=== PATIENT | male | born 1995 | race Caucasian/White ===

== ENCOUNTER 2017-01-13 22:41 | Emergency (ER) | payer OTHER ==
[2017-01-13 23:26] VITALS: RESP 18
[2017-01-14] MEDS ORDERED: ACETAMINOPHEN TAB 500 MG TAB PO STA (00:20)
[2017-01-14] MEDS ORDERED: IBUPROFEN 600 MG TAB PO STA (00:20)
[2017-01-14] MEDS ORDERED: IPRATROPIUM-ALBUTEROL 3 ML NEB INHALATION STA (00:20)
--- NOTE | 2017-01-14 00:44 | ED ---
Fever HPI - General Chief Complaint: Fever Stated Complaint: fever, Time Seen by Provider: 01/14/17 00:14 Source: patient, RN notes reviewed Mode of arrival: ambulatory Limitations: no limitations - History of Present Illness Initial Comments: 21-year-old male presents emergency Department chief complaint cough cold like symptoms. Patient states has been sick for the past few days. Patient states she has had source of breath this. Patient denies any nausea vomiting. Patient admits to ear pain as well as throat pain. Patient states that he was concerned due to the continued symptoms without that he should be evaluated. Patient denies any recent chest pain, back pain, abdominal pain, nausea vomiting , numbness or tingling, dysuria or hematuria, constipation or diarrhea, headaches or visual changes, or any other current symptoms. - Related Data Home Medications Medication Instructions Recorded Confirmed Dextroamphetamine/Amphetamine 20 mg PO DAILY 01/13/17 01/13/17 [Adderall] Previous Rx's Medication Instructions Recorded Albuterol Inhaler [Ventolin Hfa 1 - 2 puff INHALATION Q4-6H PRN #1 01/14/17 Inhaler] inhaler Albuterol Nebulized [Ventolin 2.5 mg INHALATION Q4H #20 nebu 01/14/17 Nebulized] Azithromycin [Zithromax] 250 mg PO DIRECTED #6 tab 01/14/17 Allergies Allergy/AdvReac Type Severity Reaction Status Date / Time No Known Allergies Allergy Verified 01/13/17 23:25 Review of Systems ROS Statement: Those systems with pertinent positive or pertinent negative responses have been documented in the HPI. ROS Other: All systems not noted in ROS Statement are negative. Past Medical History Past Medical History: Asthma History of Any Multi-Drug Resistant Organisms: None Reported Past Surgical History: Appendectomy, Ear Surgery, Tonsillectomy Additional Past Surgical History / Comment(s): nose, Past Psychological History: ADD/ADHD, Anxiety, Depression Smoking Status: Current every day smoker Past Alcohol Use History: Rare Past Drug Use History: None Reported General Exam - General Exam Comments Initial Comments: General exam: Alert, active, comfortable in no apparent distress Head: Normocephalic Eyes: Normal reaction of pupils, equal size, normal range of extraocular motion Ears: normal external ear canals, pink tympanic membranes with normal cone of light on the right, patient does appear to have some erythema noted to the left tympanic membrane Nose: clear with pink turbinates Throat: no erythema or exudates with normal sized tonsils Neck: no masses, no nuchal rigidity Chest: no chest wall deformity Lungs: equal air entry with no crackles or wheeze CVS: S1 and S2 normal with no audible mumurs, regular rhythm Abdomen: no hepatosplenomegaly, normal bowel sounds, no guarding or rigidity Spine: no scoliosis or deformity Skin: no rashes Neurological: No focal deficits, tone is normal in all 4 extremities Limitations: no limitations Course Vital Signs 01/13/17 23:21 Temperature 98.6 F Pulse Rate 104 H Respiratory 18 Rate Blood Pressure 125/73 O2 Sat by Pulse 98 Oximetry Medical Decision Making - Medical Decision Making 19-year-old male presents emergency Department what appears to be a left otitis media with upper respiratory infection. The family said the patient on breathing treatments for home as well as antibiotics. We discussed return The follow-up. We discussed all the patient worsens. He stated he understood and that given the plan. At this time they will be discharged home. - Lab Data Lab Results 01/14/17 Range/Units 00:38 Influenza Type A RNA Not Detected (Not Detectd) Influenza Type B (PCR) Not Detected (Not Detectd) - Radiology Data Radiology results: report reviewed, image reviewed Disposition Clinical Impression: Left otitis media, Upper respiratory infection Disposition: HOME SELF-CARE Condition: Stable Instructions: Upper Respiratory Infection (ED) Additional Instructions: Please use medication as discussed. Please follow up with family doctor if symptoms have not improved over the next two days. Please return to the emergency room if your symptoms increase or worsen or for any other concerns. Prescriptions: Albuterol Inhaler [Ventolin Hfa Inhaler] 1 - 2 puff INHALATION Q4-6H PRN #1 inhaler PRN Reason: Cough Albuterol Nebulized [Ventolin Nebulized] 2.5 mg INHALATION Q4H #20 nebu Azithromycin [Zithromax] 250 mg PO DIRECTED #6 tab Referrals: None,Stated [Primary Care Provider] - 1-2 days Deborah Hill MD [STAFF PHYSICIAN] - 1-2 days Time of Disposition: 01:15
--- NOTE | 2017-01-14 01:12 | XR ---
EXAM: XR Chest, 2 Views. CLINICAL HISTORY: Reason: cough TECHNIQUE: Frontal and lateral views of the chest. COMPARISON: None FINDINGS: Hardware: None. Lungs/pleura: No focal consolidation. No pleural effusion or pneumothorax. Heart/mediastinum: Normal. No cardiomegaly. Soft tissues: Unremarkable. Bones: No acute fracture. Upper abdomen: Normal. IMPRESSION: No acute disease.
[2017-01-14 02:08] VITALS: BP 127/67; PULSE 95; TEMP 98.1
== END 2017-01-14 02:08 | disposition home or self-care (01) ==
LOC: EC 22:41
DX: J06.9 Acute upper respiratory infection, unspecified (principal); H66.92 Otitis media, unspecified, left ear; J45.909 Unspecified asthma, uncomplicated; F90.9 Attention-deficit hyperactivity disorder, unspecified type; F32.9 Major depressive disorder, single episode, unspecified; F41.9 Anxiety disorder, unspecified; F17.200 Nicotine dependence, unspecified, uncomplicated; Z79.899 Other long term (current) drug therapy; Z90.89 Acquired absence of other organs
CPT/HCPCS: 71020; 87502; 94640; 99284

== ENCOUNTER 2017-06-03 00:46 | Emergency (ER) | payer OTHER ==
[2017-06-03] MEDS ORDERED: IPRATROPIUM-ALBUTEROL 3 ML NEB INHALATION STA (01:36)
--- NOTE | 2017-06-03 01:54 | XR ---
EXAM: XR Chest, 2 Views CLINICAL HISTORY: Reason: cough TECHNIQUE: Frontal and lateral views of the chest. COMPARISON: 01/14/17 FINDINGS: Lungs: Unremarkable. No consolidation. Pleural space: Unremarkable. No pneumothorax. Heart: Unremarkable. No cardiomegaly. Mediastinum: Unremarkable. Bones/joints: Unremarkable. IMPRESSION: Normal chest x-rays.
[2017-06-03] MEDS ORDERED: methylPREDNISolone SOD SUCCI 125 MG/2 ML VIAL IM STA (02:23)
--- NOTE | 2017-06-03 02:37 | ED ---
General Adult HPI - General Chief complaint: Upper Respiratory Infection Stated complaint: NEREIDA Time Seen by Provider: 06/03/17 01:28 Source: patient, RN notes reviewed Mode of arrival: ambulatory Limitations: no limitations - History of Present Illness Initial comments: Patient 22-year-old male seen in the past medical history for asthma, who presents emergency room today with a chief complaint of increased cough congestion over the last week. He does admit to positive sputum production. States it has been another person in the hospital similar symptoms of upper respiratory infection. Patient states he does have an inhaler but does not appear in she was at home. He does admit to some pain to the anterior chest wall worse with the coughing. He denies any other bites associated symptoms. Patient denies any recent fever, chills, back pain, abdominal pain, nausea or vomiting, numbness or tingling, dysuria or hematuria, constipation or diarrhea, headaches or visual changes, or any other complaints. - Related Data Home Medications Medication Instructions Recorded Confirmed Budesonide/Formoterol Fumarate 2 puff INHALATION BID 06/03/17 06/03/17 [Symbicort 160-4.5 Mcg Inhaler] buPROPion HCL [Wellbutrin XL] 300 mg PO DAILY 06/03/17 06/03/17 Previous Rx's Medication Instructions Recorded Albuterol Nebulized [Ventolin 2.5 mg INHALATION Q4H #20 nebu 01/14/17 Nebulized] Albuterol Nebulized [Ventolin 2.5 mg INHALATION Q4H PRN 10 Days 06/03/17 Nebulized] Azithromycin [Zithromax Z-pack] 0 mg PO DIRECTED #6 tab 06/03/17 predniSONE 60 mg PO DAILY 5 Days 06/03/17 Allergies Allergy/AdvReac Type Severity Reaction Status Date / Time No Known Allergies Allergy Verified 06/03/17 00:51 Review of Systems ROS Statement: Those systems with pertinent positive or pertinent negative responses have been documented in the HPI. ROS Other: All systems not noted in ROS Statement are negative. Past Medical History Past Medical History: Asthma History of Any Multi-Drug Resistant Organisms: None Reported Past Surgical History: Appendectomy, Ear Surgery, Tonsillectomy Additional Past Surgical History / Comment(s): nose, Past Psychological History: ADD/ADHD, Anxiety, Depression Smoking Status: Current every day smoker Past Alcohol Use History: Rare Past Drug Use History: None Reported General Exam - General Exam Comments Initial Comments: General: The patient is awake and alert, in no distress, and does not appear acutely ill. Eye: Pupils are equal, round and reactive to light, extra-ocular movements are intact. No nystagmus. There is normal conjunctiva bilaterally. No signs of icterus. Ears, nose, mouth and throat: There are moist mucous membranes and no oral lesions. Neck: The neck is supple, there is no tenderness or JVD. Cardiovascular: There is a regular rate and rhythm. No murmur, rub or gallop is appreciated. Respiratory: Lungs are clear to auscultation, respirations are non-labored, breath sounds are equal. No wheezes, stridor, rales, or rhonchi. Gastrointestinal: Soft, non-distended, non-tender abdomen without masses or organomegaly noted. There is no rebound or guarding present. No CVA tenderness. Bowel sounds are unremarkable. Musculoskeletal: Normal ROM, no tenderness. Strength 5/5. Sensation intact. Pulses equal bilaterally 2+. Neurological: A&O x 3. CN II-XII intact, There are no obvious motor or sensory deficits. Coordination appears grossly intact. Speech is normal. Skin: Skin is warm and dry and no rashes or lesions are noted. Psychiatric: Cooperative, appropriate mood & affect, normal judgment. Limitations: no limitations Course Vital Signs 06/03/17 06/03/17 06/03/17 00:48 01:52 02:02 Temperature 97.7 F Pulse Rate 87 72 83 Respiratory 18 Rate Blood Pressure 132/70 O2 Sat by Pulse 100 Oximetry Medical Decision Making - Medical Decision Making Patient given breathing treatment here in the emergency room does admit to some improvement. He does admit to cough congestion over the last week positive sputum production. Chest x-rays reviewed shows no pneumonia. Patient's symptoms consistent with a bronchitis given dose of steroids here in the emergency room will be started on azithromycin, steroids and given prescription for breathing treatments as he states he does have access to a nebulizer. He is advised his family doctor over the next 1-2 days or return here to emergency room if any symptoms increase or worsen. Patient states understanding and is in agreement. Disposition Clinical Impression: Acute bronchitis Disposition: HOME SELF-CARE Condition: Good Instructions: Acute Bronchitis (ED) Additional Instructions: Please use medication as discussed. Please follow-up with family doctor in the next 2 days. Please return to emergency room if the symptoms increase or worsen or for any other concerns. Prescriptions: Albuterol Nebulized [Ventolin Nebulized] 2.5 mg INHALATION Q4H PRN 10 Days PRN Reason: Cough Azithromycin [Zithromax Z-pack] 0 mg PO DIRECTED #6 tab predniSONE 60 mg PO DAILY 5 Days Referrals: Lam Lane MD [Primary Care Provider] - 1-2 days Time of Disposition: 02:36
[2017-06-03 02:49] VITALS: BP 139/70; PULSE 82; RESP 16; TEMP 97.8
== END 2017-06-03 02:49 | disposition home or self-care (01) ==
LOC: EC 00:46
DX: J45.901 Unspecified asthma with (acute) exacerbation (principal); F32.9 Major depressive disorder, single episode, unspecified; F90.9 Attention-deficit hyperactivity disorder, unspecified type; F41.9 Anxiety disorder, unspecified; F17.200 Nicotine dependence, unspecified, uncomplicated; Z79.51 Long term (current) use of inhaled steroids; Z79.899 Other long term (current) drug therapy
CPT/HCPCS: 94640; 93005; 71020; 99283; 96372; J2930

== ENCOUNTER 2018-01-06 11:35 | Emergency (ER) | payer OTHER ==
[2018-01-06 11:39] VITALS: BP 134/71; RESP 20; TEMP 98.1
[2018-01-06] MEDS ORDERED: IPRATROPIUM-ALBUTEROL 3 ML NEB INHALATION STA (12:03)
--- NOTE | 2018-01-06 12:19 | XR ---
EXAMINATION TYPE: XR chest 2V DATE OF EXAM: 01/06/2018 COMPARISON: June 03, 2017 HISTORY: Chest pain TECHNIQUE: Frontal and lateral views of the chest are obtained. FINDINGS: There is no focal air space opacity. No evidence for pneumothorax. No pleural effusion. The cardiac silhouette size is within normal limits. The osseous structures are grossly intact. IMPRESSION: 1. No acute cardiopulmonary process.
--- NOTE | 2018-01-06 12:33 | ED ---
SOB HPI - General Chief Complaint: Shortness of Breath Stated Complaint: cough, congestion Time Seen by Provider: 01/06/18 11:52 Source: patient, RN notes reviewed Mode of arrival: ambulatory Limitations: no limitations - History of Present Illness Initial Comments: 22-year-old male presents emergency Department chief complaint cough congestion. Patient states symptoms started approximately one week ago. Patient the daily smoker. He has not any any [id number] cough and cold medications denies any fever or chills or body aches. He has a slight rhinorrhea and sinus congestion. His cough is nonproductive. Patient states he has history of asthma but does not use any inhaler or nebulized treatments. Patient denies any recent hospitalizations. Denies any NO KNOWN DRUG ALLERGIES. - Related Data Home Medications Medication Instructions Recorded Confirmed Budesonide/Formoterol Fumarate 2 puff INHALATION BID 06/03/17 06/03/17 [Symbicort 160-4.5 Mcg Inhaler] buPROPion HCL [Wellbutrin XL] 300 mg PO DAILY 06/03/17 06/03/17 Previous Rx's Medication Instructions Recorded Albuterol Nebulized [Ventolin 2.5 mg INHALATION Q4H #20 nebu 01/14/17 Nebulized] Albuterol Nebulized [Ventolin 2.5 mg INHALATION Q4H PRN 10 Days 06/03/17 Nebulized] nebu Azithromycin [Zithromax Z-pack] 0 mg PO DIRECTED #6 tab 06/03/17 predniSONE 60 mg PO DAILY 5 Days tab 06/03/17 Albuterol Sulfate [Proair Hfa] 1 - 2 puff INHALATION Q4HR PRN #1 01/06/18 inhaler Azithromycin [Zithromax Z-pack] 0 mg PO DIRECTED #1 pack 01/06/18 predniSONE 50 mg PO DAILY #5 tab 01/06/18 Allergies Allergy/AdvReac Type Severity Reaction Status Date / Time No Known Allergies Allergy Verified 01/06/18 11:39 Review of Systems ROS Statement: Those systems with pertinent positive or pertinent negative responses have been documented in the HPI. ROS Other: All systems not noted in ROS Statement are negative. Past Medical History Past Medical History: Asthma History of Any Multi-Drug Resistant Organisms: None Reported Past Surgical History: Appendectomy, Ear Surgery, Tonsillectomy Additional Past Surgical History / Comment(s): nose, Past Psychological History: ADD/ADHD, Anxiety, Depression Smoking Status: Current every day smoker Past Alcohol Use History: Rare Past Drug Use History: None Reported General Exam Limitations: no limitations General appearance: alert, in no apparent distress Head exam: Present: atraumatic, normocephalic, normal inspection Eye exam: Present: normal appearance, PERRL, EOMI. Absent: scleral icterus, conjunctival injection, periorbital swelling ENT exam: Present: normal exam, normal oropharynx, mucous membranes moist, TM's normal bilaterally, normal external ear exam Neck exam: Present: normal inspection, full ROM. Absent: tenderness, meningismus, lymphadenopathy Respiratory exam: Present: wheezes (Minimal). Absent: normal lung sounds bilaterally, respiratory distress, rales, rhonchi, stridor Cardiovascular Exam: Present: regular rate, normal rhythm, normal heart sounds. Absent: systolic murmur, diastolic murmur, rubs, gallop, clicks Skin exam: Present: warm, dry, intact, normal color. Absent: rash Course Vital Signs 01/06/18 01/06/18 01/06/18 11:37 12:36 12:45 Temperature 98.1 F Pulse Rate 98 84 88 Respiratory 20 Rate Blood Pressure 134/71 O2 Sat by Pulse 100 Oximetry Medical Decision Making - Medical Decision Making 22-year-old male present with Department chief complaint of cough congestion. Patient has acute bronchitis. Patient's x-ray reviewed no acute abnormality patient is improved after breathing treatment. He is advised to stop smoking smoking cessation was counseled in detail greater than 3 minutes. Disposition Clinical Impression: Acute bronchitis Disposition: HOME SELF-CARE Condition: Stable Instructions: Acute Bronchitis (ED) Additional Instructions: Please return to the Emergency Department if symptoms worsen or any other concerns. Prescriptions: Albuterol Sulfate [Proair Hfa] 1 - 2 puff INHALATION Q4HR PRN #1 inhaler PRN Reason: difficulty in breathing Azithromycin [Zithromax Z-pack] 0 mg PO DIRECTED #1 pack predniSONE 50 mg PO DAILY #5 tab Referrals: Lam Lane MD [Primary Care Provider] - 1-2 days Time of Disposition: 13:06
[2018-01-06 12:47] VITALS: PULSE 88
== END 2018-01-06 13:10 | disposition home or self-care (01) ==
LOC: EC 11:35
DX: J20.9 Acute bronchitis, unspecified (principal); J45.909 Unspecified asthma, uncomplicated; F32.9 Major depressive disorder, single episode, unspecified; F17.200 Nicotine dependence, unspecified, uncomplicated; Z79.51 Long term (current) use of inhaled steroids; Z79.899 Other long term (current) drug therapy
CPT/HCPCS: 71046; 94640; 99285

== ENCOUNTER 2018-07-17 22:19 | Emergency (ER) | payer OTHER ==
--- NOTE | 2018-07-18 00:18 | XR ---
EXAMINATION TYPE: XR chest 2V DATE OF EXAM: 07/18/2018 COMPARISON: 01/06/2018 HISTORY: Cough TECHNIQUE: Frontal and lateral views of the chest are obtained. FINDINGS: Heart and mediastinum are normal. Lungs are clear. Diaphragm is normal. Bony thorax is int act. IMPRESSION: Normal chest. No change.
--- NOTE | 2018-07-18 01:31 | ED ---
General Adult HPI - General Chief complaint: Upper Respiratory Infection Stated complaint: Cold Time Seen by Provider: 07/17/18 23:08 Source: patient, RN notes reviewed Mode of arrival: ambulatory Limitations: no limitations - History of Present Illness Initial comments: 23-year-old male presents to the emergency department for cold symptoms times one month. Patient complains of a cough but denies any productivity. Patient also complains of a sore throat as well as congestion and ear pain. Patient denies headache. Patient denies shortness of breath. Patient does have a history of asthma and is a smoker. He denies COPD. He denies any other pertinent medical history. Denies any fevers or chills at home. He denies any chest pain but does state sometimes there is tightness when he coughs.Patient has no other complaints at this time including chest pain, abdominal pain, nausea or vomiting, headache, or visual changes. - Related Data Home Medications Medication Instructions Recorded Confirmed Budesonide/Formoterol Fumarate 2 puff INHALATION BID 06/03/17 06/03/17 [Symbicort 160-4.5 Mcg Inhaler] buPROPion HCL [Wellbutrin XL] 300 mg PO DAILY 06/03/17 06/03/17 Previous Rx's Medication Instructions Recorded Albuterol Nebulized [Ventolin 2.5 mg INHALATION Q4H #20 nebu 01/14/17 Nebulized] Albuterol Nebulized [Ventolin 2.5 mg INHALATION Q4H PRN 10 Days 06/03/17 Nebulized] nebu Azithromycin [Zithromax Z-pack] 0 mg PO DIRECTED #6 tab 06/03/17 predniSONE 60 mg PO DAILY 5 Days tab 06/03/17 Albuterol Sulfate [Proair Hfa] 1 - 2 puff INHALATION Q4HR PRN #1 01/06/18 inhaler Azithromycin [Zithromax Z-pack] 0 mg PO DIRECTED #1 pack 01/06/18 predniSONE 50 mg PO DAILY #5 tab 01/06/18 Albuterol Inhaler [Ventolin Hfa 1 - 2 puff INHALATION Q6HR PRN #1 07/18/18 Inhaler] inhaler Azithromycin [Zithromax Z-pack] 250 mg PO DIRECTED #6 tab 07/18/18 predniSONE 50 mg PO DAILY #5 tablet 07/18/18 Allergies Allergy/AdvReac Type Severity Reaction Status Date / Time No Known Allergies Allergy Verified 07/17/18 23:02 Review of Systems ROS Statement: Those systems with pertinent positive or pertinent negative responses have been documented in the HPI. ROS Other: All systems not noted in ROS Statement are negative. Past Medical History Past Medical History: Asthma History of Any Multi-Drug Resistant Organisms: None Reported Past Surgical History: Appendectomy, Ear Surgery, Tonsillectomy Additional Past Surgical History / Comment(s): nose, Past Psychological History: ADD/ADHD, Anxiety, Depression Smoking Status: Current every day smoker Past Alcohol Use History: None Reported Past Drug Use History: None Reported General Exam Limitations: no limitations General appearance: alert, in no apparent distress Head exam: Present: atraumatic, normocephalic, normal inspection Eye exam: Present: normal appearance, PERRL, EOMI. Absent: scleral icterus, conjunctival injection, periorbital swelling ENT exam: Present: normal exam, normal oropharynx (Nonerythematous, uvula midline, patient has had a tonsillectomy), mucous membranes moist, TM's normal bilaterally, normal external ear exam Neck exam: Present: normal inspection, full ROM. Absent: tenderness, meningismus, lymphadenopathy Respiratory exam: Present: normal lung sounds bilaterally. Absent: respiratory distress, wheezes, rales, rhonchi, stridor Cardiovascular Exam: Present: regular rate, normal rhythm, normal heart sounds. Absent: systolic murmur, diastolic murmur, rubs, gallop, clicks GI/Abdominal exam: Present: soft, normal bowel sounds. Absent: distended, tenderness, guarding, rebound, rigid Neurological exam: Present: alert, oriented X3, CN II-XII intact Psychiatric exam: Present: normal affect, normal mood Course Vital Signs 07/17/18 23:00 Temperature 98.1 F Pulse Rate 77 Respiratory 20 Rate Blood Pressure 107/67 O2 Sat by Pulse 97 Oximetry Medical Decision Making - Medical Decision Making 23-year-old male presents for cold symptoms times one month. Patient has had a nonproductive cough along with a sore throat, ear pain, and congestion. He denies fevers or chills at home. He states this generally happens to him about 3 times a year. Patient is a smoker with a history of asthma. Vitals are within normal limits. Temperature 98.1. Pulse rate 77. O2 saturation 97% on room air. Exam does not show any evidence of wheezing and lungs are clear to auscultation bilaterally. Chest x-ray negative for pneumonia. Strep negative. Culture will be sent. At this time patient likely has a viral upper respiratory or bronchitis. He will be treated with prednisone due to his history of asthma. He will be given azithromycin as this has been ongoing for 1 month and he is a smoker. He will also be given an inhaler. He is to follow- up with primary care in 1-2 days. I did discuss returning immediately if he has any worsening symptoms. - Lab Data Lab Results 07/17/18 Range/Units 23:45 Group A Strep Rapid Negative (Negative) Disposition Clinical Impression: Cough Disposition: HOME SELF-CARE Condition: Good Instructions: Upper Respiratory Infection (ED) Additional Instructions: Please take prescriptions as directed. Please follow-up with primary care in 1- 2 days. Return immediately to the emergency department if you have any worsening symptoms. Prescriptions: Albuterol Inhaler [Ventolin Hfa Inhaler] 1 - 2 puff INHALATION Q6HR PRN #1 inhaler PRN Reason: Shortness Of Breath Azithromycin [Zithromax Z-pack] 250 mg PO DIRECTED #6 tab predniSONE 50 mg PO DAILY #5 tablet Is patient prescribed a controlled substance at d/c from ED?: No Referrals: Manny Garcia MD [STAFF PHYSICIAN] - 1-2 days Time of Disposition: 01:28
[2018-07-18 01:40] VITALS: BP 133/68; PULSE 73; RESP 16; TEMP 98.4
== END 2018-07-18 01:40 | disposition home or self-care (01) ==
LOC: EC 22:19
DX: R05 Cough (principal); R09.81 Nasal congestion; H92.09 Otalgia, unspecified ear; J02.9 Acute pharyngitis, unspecified; J45.909 Unspecified asthma, uncomplicated; F32.9 Major depressive disorder, single episode, unspecified; F17.200 Nicotine dependence, unspecified, uncomplicated; Z79.51 Long term (current) use of inhaled steroids; Z79.899 Other long term (current) drug therapy
CPT/HCPCS: 71046; 87081; 87430; 99283

== ENCOUNTER 2019-05-29 | Emergency (ER) | payer OTHER ==
--- NOTE | 2019-05-29 18:48 | ED ---
Skin/Abscess/FB HPI - General Chief complaint: Skin/Abscess/Foreign Body Stated complaint: POSS SCABIES Time Seen by Provider: 05/29/19 18:29 Source: patient Mode of arrival: ambulatory Limitations: no limitations - History of Present Illness Initial comments: 24-year-old male presents with a past nuchal history presented for possible exposure to scabies. Patient states he has lesions in his groins on his arms and legs. He states that his [id number]-law had visited and shortly after his entire family had lesions on the bodies. He states at first they thought they are mosquito bites. They found out that the man was seen and treated for scabies. Patient is concerned there exposed father and his 2 children been presents emergency department for evaluation. Patient states her itching. Denies any pattern at night. Denies any lesions between the fingers on the feet. Patient states he does have ingrown hairs commonly in the groin. Patient denies any fevers. Patient is back today. Denies recent travel. Remaining review of system negative. Upon arrival patient appears well afebrile no signs of acute distress. - Related Data Home Medications Medication Instructions Recorded Confirmed Budesonide/Formoterol Fumarate 2 puff INHALATION BID 06/03/17 06/03/17 [Symbicort 160-4.5 Mcg Inhaler] buPROPion HCL [Wellbutrin XL] 300 mg PO DAILY 06/03/17 06/03/17 Previous Rx's Medication Instructions Recorded Albuterol Nebulized [Ventolin 2.5 mg INHALATION Q4H #20 nebu 01/14/17 Nebulized] Albuterol Nebulized [Ventolin 2.5 mg INHALATION Q4H PRN 10 Days 06/03/17 Nebulized] nebu Azithromycin [Zithromax Z-pack] 0 mg PO DIRECTED #6 tab 06/03/17 predniSONE 60 mg PO DAILY 5 Days tab 06/03/17 Albuterol Sulfate [Proair Hfa] 1 - 2 puff INHALATION Q4HR PRN #1 01/06/18 inhaler Azithromycin [Zithromax Z-pack] 0 mg PO DIRECTED #1 pack 01/06/18 predniSONE 50 mg PO DAILY #5 tab 01/06/18 Albuterol Inhaler [Ventolin Hfa 1 - 2 puff INHALATION Q6HR PRN #1 07/18/18 Inhaler] inhaler Azithromycin [Zithromax Z-pack] 250 mg PO DIRECTED #6 tab 07/18/18 predniSONE 50 mg PO DAILY #5 tablet 07/18/18 Permethrin 5% Cream [Elimite] 1 applic TOPICAL ONCE 1 Days #1 05/29/19 tube Allergies Allergy/AdvReac Type Severity Reaction Status Date / Time No Known Allergies Allergy Verified 05/29/19 18:27 Review of Systems ROS Statement: Those systems with pertinent positive or pertinent negative responses have been documented in the HPI. ROS Other: All systems not noted in ROS Statement are negative. Past Medical History Past Medical History: Asthma History of Any Multi-Drug Resistant Organisms: None Reported Past Surgical History: Adenoidectomy, Appendectomy, Ear Surgery, Tonsillectomy Additional Past Surgical History / Comment(s): nose, Past Psychological History: ADD/ADHD, Anxiety, Depression Smoking Status: Current every day smoker Past Alcohol Use History: None Reported Past Drug Use History: None Reported General Exam - General Exam Comments Initial Comments: General: The patient is awake and alert, in no distress, and does not appear a cutely ill. Eye: +3 m pupils are equal, round and reactive to light, extra-ocular movements are intact. No nystagmus. There is normal conjunctiva bilaterally. No signs of icterus. Ears, nose, mouth and throat: There are moist mucous membranes and no oral lesions. Neck: The neck is supple, there is no tenderness or JVD. Cardiovascular: There is a regular rate and rhythm. No murmur, rub or gallop is appreciated. Respiratory: Lungs are clear to auscultation, respirations are non-labored, breath sounds are equal. No wheezes, stridor, rales, or rhonchi. Musculoskeletal: Normal ROM, no tenderness. Strength 5/5. Sensation intact. Ra dial pulses equal bilaterally 2+. Neurological: A&O x 3. CN II-XII intact, There are no obvious motor or sensory deficits. Coordination appears grossly intact. Speech is normal. Skin: Skin is warm and dry and no rashes. Raised red papules, no pustules, with mild excoriation, no diffuse erythema. No pattern few scattered lesions on UE/ LE and trunk. Patient exposed groin which revealed, few scattered non erythematous furuncles. No drainge. Psychiatric: Cooperative, appropriate mood & affect, normal judgment. Limitations: no limitations Course Vital Signs 05/29/19 18:27 Temperature 98.4 F Pulse Rate 79 Respiratory 18 Rate Blood Pressure 115/72 O2 Sat by Pulse 98 Oximetry Medical Decision Making - Medical Decision Making 24-year-old male presenting for possible scabies exposure. No overt signs of scabies. Patient showed me for uncles that were in the groin. They do not appear infected. No abscess. No surrounding cellulitis or secondary infection. This scattered lesions appear to be insect bites could possibly bedbugs. Scabies is on the differential however I feel this is less likely. Patient was prescribed permethrin however I do not advise patient to use it unless symptoms are worsening, including lesions between the fingers on the feet and itching increase at night. I recommended primary care follow up in 2 days. Patient is agreeable this care plan was discharged appearing well Disposition Clinical Impression: Rash Disposition: HOME SELF-CARE Condition: Good Instructions (If sedation given, give patient instructions): Scabies (ED) Additional Instructions: Please use medication as discussed. Please follow-up with family doctor in the next 2 days.. Please return to emergency room if the symptoms increase or worsen or for any other concerns. Prescriptions: Permethrin 5% Cream [Elimite] 1 applic TOPICAL ONCE 1 Days #1 tube Is patient prescribed a controlled substance at d/c from ED?: No Referrals: Raymundo Veloz MD [Primary Care Provider] - 1-2 days Time of Disposition: 18:48
== END 2019-05-29 18:57 | disposition home or self-care (01) ==
CPT/HCPCS: 99282

== ENCOUNTER 2019-11-21 20:00 | Observation (INO) | payer OTHER ==
[2019-11-21] MEDS ORDERED: SODIUM CHLORIDE 0.9% 1,000 ML IV STA (20:21)
[2019-11-21] MEDS ORDERED: MORPHINE SULFATE 4 MG/ML SYRINGE IV STA (20:21)
[2019-11-21] MEDS ORDERED: ONDANSETRON 4 MG/2 ML VIAL IVP STA (20:21)
[2019-11-21 21:09] LABS: Basophils # (A) 0.1 k/uL (0-0.2); Basophils % (A) 0 %; Eosinophils # (A) 0.1 k/uL (0-0.7); Eosinophils % (A) 0 %; HCT 46.7 % (39.0-53.0); HGB 16.3 gm/dL (13.0-17.5); Lymphocytes # (A) 1.6 k/uL (1.0-4.8); Lymphocytes % (A) 8 %; MCHC 34.9 g/dL (31.0-37.0); MCV 86.1 fL (80.0-100.0); Mean Platelet Volume 7.5; Monocytes # (A) 0.8 k/uL (0-1.0); Monocytes % (A) 4 %; Neutrophils # (A) 17.8 k/uL (1.3-7.7); Neutrophils % (A) 87 %; Platelet Count 272 k/uL (150-450); RBC 5.42 m/uL (4.30-5.90); RDW 12.1 % (11.5-15.5); WBC 20.6 k/uL (3.8-10.6)
[2019-11-21 21:12] LABS: Appearance,Urine Clear (Clear); Bilirubin,Urine Negative (Negative); Blood,Urine Negative (Negative); Color,Urine Yellow; Glucose,Urine (UA) Negative (Negative); Ketones,Urine 3+ (Negative); Leukocyte Esterase,Urine Negative (Negative); Mucus,Urine Many /hpf; Nitrite,Urine Negative (Negative); Protein,Urine 1+ (Negative); RBC,Urine 1 /hpf (0-5); Specific Gravity,Urine 1.033 (1.001-1.035); Squamous Epithelial Cell,Urine <1 /hpf (0-4); WBC,Urine 1 /hpf (0-5)
[2019-11-21 21:20] LABS: ALT 22 U/L (4-49); AST 27 U/L (17-59); African American GFR (CKD) >90 (>60 ml/min/1.73 sqM); Albumin 4.8 g/dL (3.5-5.0); Alkaline Phosphatase 72 U/L (38-126); Amylase 38 U/L (30-110); Anion Gap 9 mmol/L; Blood Urea Nitrogen 11 mg/dL (9-20); Calcium 9.6 mg/dL (8.4-10.2); Carbon Dioxide 27 mmol/L (22-30); Chloride 102 mmol/L (98-107); Glucose 89 mg/dL (74-99); Non-African American GFR(CKD) >90 (>60 ml/min/1.73 sqM); Potassium 4.3 mmol/L (3.5-5.1); Sodium 138 mmol/L (137-145); Total Bilirubin 0.7 mg/dL (0.2-1.3); Total Protein 7.7 g/dL (6.3-8.2)
--- NOTE | 2019-11-21 21:42 | CT ---
EXAMINATION TYPE: CT abdomen pelvis w con DATE OF EXAM: 11/21/2019 COMPARISON: None HISTORY: Pelvic and right lower quadrant pain. CT DLP: 1854.7 mGycm Automated exposure control for dose reduction was used. CONTRAST: Performed with IV Contrast, patient injected with 100 mL of Isovue 300. Multiple axial sections were obtained from the diaphragm to the floor the pelvis with intravenous con trast. Lung bases are clear. There is no pleural effusion. Heart size is normal. Liver spleen pancreas gallbladder stomach appear normal. Bile ducts are not dilated. There is no adrenal mass. Kidneys show satisfactory contrast opacification. There is no hydronephrosi s. Ureters are not dilated. Bladder distends smoothly. There is no inguinal hernia. There is no free fluid in the pelvis. There is some prominence of the appendix that measures up to 9 mm. There is very minimal surrounding fat stranding. There is no mesenteric edema. There is no ascites or free air. There is no sign of a bowel obstructio n. Lumbar vertebra have normal spacing and alignment. Posterior elements are intact. Bony pelvis is i ntact. IMPRESSION: Prominent appendix. This is equivocal for appendicitis. There is suggestion of very minimal fat stran ding and appendicitis should be considered in this patient with right lower quadrant pain.
[2019-11-21] MEDS ORDERED: PIPERACILLIN-TAZOBACTAM 3.375 GM in SODIUM CHLORIDE 0.9% 100 ML IVPB STA (21:43)
[2019-11-21] MEDS ORDERED: PIPERACILLIN-TAZOBACTAM 3.375 GM in SODIUM CHLORIDE 0.9% 100 ML IVPB ONE (22:01)
[2019-11-21] MEDS ORDERED: NALOXONE 0.4 MG/ML 1 ML VIAL IV PRN (22:22)
--- NOTE | 2019-11-21 22:24 | ED ---
General Adult HPI - General Chief complaint: Abdominal Pain Stated complaint: Side pain Time Seen by Provider: 11/21/19 20:08 Source: patient, RN notes reviewed, old records reviewed Mode of arrival: ambulatory Limitations: no limitations - History of Present Illness Initial comments: 24-year-old male patient no pertinent past history presents ED chief complaint right lower quadrant pain. Patient reports that today he had generalized abdominal discomfort. Today migraine his right lower quadrant. Does report of some nausea vomiting. Denies any other complaints. - Related Data Home Medications Medication Instructions Recorded Confirmed Budesonide/Formoterol Fumarate 2 puff INHALATION BID 06/03/17 06/03/17 [Symbicort 160-4.5 Mcg Inhaler] buPROPion HCL [Wellbutrin XL] 300 mg PO DAILY 06/03/17 06/03/17 Previous Rx's Medication Instructions Recorded Albuterol Nebulized [Ventolin 2.5 mg INHALATION Q4H #20 nebu 01/14/17 Nebulized] Albuterol Nebulized [Ventolin 2.5 mg INHALATION Q4H PRN 10 Days 06/03/17 Nebulized] nebu Azithromycin [Zithromax Z-pack] 0 mg PO DIRECTED #6 tab 06/03/17 predniSONE [Deltasone] 60 mg PO DAILY 5 Days tab 06/03/17 Albuterol Sulfate [Proair Hfa] 1 - 2 puff INHALATION Q4HR PRN #1 01/06/18 inhaler Azithromycin [Zithromax Z-pack] 0 mg PO DIRECTED #1 pack 01/06/18 predniSONE 50 mg PO DAILY #5 tab 01/06/18 Albuterol Inhaler [Ventolin Hfa 1 - 2 puff INHALATION Q6HR PRN #1 07/18/18 Inhaler] inhaler Azithromycin [Zithromax Z-pack] 250 mg PO DIRECTED #6 tab 07/18/18 predniSONE 50 mg PO DAILY #5 tablet 07/18/18 Permethrin 5% Cream [Elimite] 1 applic TOPICAL ONCE 1 Days #1 05/29/19 tube Allergies Allergy/AdvReac Type Severity Reaction Status Date / Time No Known Allergies Allergy Verified 11/21/19 20:07 Review of Systems ROS Statement: Those systems with pertinent positive or pertinent negative responses have been documented in the HPI. ROS Other: All systems not noted in ROS Statement are negative. Past Medical History Past Medical History: Asthma, GERD/Reflux History of Any Multi-Drug Resistant Organisms: None Reported Past Surgical History: Adenoidectomy, Ear Surgery, Tonsillectomy Additional Past Surgical History / Comment(s): nose, Past Psychological History: ADD/ADHD, Anxiety, Depression Smoking Status: Current every day smoker Past Alcohol Use History: Occasional Past Drug Use History: None Reported General Exam - General Exam Comments Initial Comments: Constitutional: NAD, AOX3, Pt has pleasant affect. HEENT: NC/AT, trachea midline, neck supple, no lymphadenopathy. Posterior pharynx non erythematous, without exudates. External ears appear normal, without discharge. Mucous membranes moist. Eyes PERRLA, EOM intact. There is no scleral icterus. No pallor noted. Cardiopulmonary: RRR, no murmurs, rubs or gallops, no JVD noted. Lungs CTAB in anterior and posterior plaza. No peripheral edema. Abdominal exam: Abdomen soft and non-distended. Abdomen tender to palpation at McBurney's point right lower quadrant region. No other areas of abdominal tenderness. Bowel sounds active in LLQ. No hepatosplenomegaly. No ecchymosis Neuro: CN II-XII grossly intact. No nuchal rigidity. No raccon eyes, no ramsey sign, no hemotympanum. No cervical spinal tenderness. MSK: Full active ROM in upper and lower extremities, 5/5 stregnth. Limitations: no limitations Course Vital Signs 11/21/19 20:05 Temperature 97.5 F L Pulse Rate 58 L Respiratory 20 Rate Blood Pressure 117/71 O2 Sat by Pulse 100 Oximetry Medical Decision Making - Medical Decision Making 24-year-old male patient presents to ED for abdominal pain. Patient vital signs are stable, afebrile. Physical exam is fairly right lower quadrant tenderness. Laboratory investigations revealed leukocytosis of 20. CT abdomen and pelvis equivoical for appendicitis. Patient does have point tenderness and clinical suspicion is very high. Patient initiated on IV antibiotics and admitted to Dr. Benson. case discussed and pt seen by Dr. Santacruz. - Lab Data Result diagrams: 11/21/19 20:52 11/21/19 20:52 Lab Results 11/21/19 11/21/19 11/21/19 Range/Units 20:52 20:52 20:52 WBC 20.6 H (3.8-10.6) k/uL RBC 5.42 (4.30-5.90) m/uL Hgb 16.3 (13.0-17.5) gm/dL Hct 46.7 (39.0-53.0) % MCV 86.1 (80.0-100.0) fL MCH 30.0 (25.0-35.0) pg MCHC 34.9 (31.0-37.0) g/dL RDW 12.1 (11.5-15.5) % Plt Count 272 (150-450) k/uL Neutrophils % 87 % Lymphocytes % 8 % Monocytes % 4 % Eosinophils % 0 % Basophils % 0 % Neutrophils # 17.8 H (1.3-7.7) k/uL Lymphocytes # 1.6 (1.0-4.8) k/uL Monocytes # 0.8 (0-1.0) k/uL Eosinophils # 0.1 (0-0.7) k/uL Basophils # 0.1 (0-0.2) k/uL Sodium 138 (137-145) mmol/L Potassium 4.3 (3.5-5.1) mmol/L Chloride 102 (98-107) mmol/L Carbon Dioxide 27 (22-30) mmol/L Anion Gap 9 mmol/L BUN 11 (9-20) mg/dL Creatinine 0.76 (0.66-1.25) mg/dL Est GFR (CKD-EPI)AfAm >90 (>60 ml/min/1.73 sqM) Est GFR (CKD-EPI)NonAf >90 (>60 ml/min/1.73 sqM) Glucose 89 (74-99) mg/dL Plasma Lactic Acid Filipe 1.1 (0.7-2.0) mmol/L Calcium 9.6 (8.4-10.2) mg/dL Total Bilirubin 0.7 (0.2-1.3) mg/dL AST 27 (17-59) U/L ALT 22 (4-49) U/L Alkaline Phosphatase 72 (38-126) U/L Total Protein 7.7 (6.3-8.2) g/dL Albumin 4.8 (3.5-5.0) g/dL Amylase 38 (30-110) U/L Lipase 18 L (23-300) U/L Urine Color Urine Appearance (Clear) Urine pH (5.0-8.0) Ur Specific [place] (1.001-1.035) Urine Protein (Negative) Urine Glucose (UA) (Negative) Urine Ketones (Negative) Urine Blood (Negative) Urine Nitrite (Negative) Urine Bilirubin (Negative) Urine Urobilinogen (<2.0) mg/dL Ur Leukocyte Esterase (Negative) Urine RBC (0-5) /hpf Urine WBC (0-5) /hpf Ur Squamous Epith Cells (0-4) /hpf Urine Mucus (None) /hpf 11/21/19 Range/Units 20:52 WBC (3.8-10.6) k/uL RBC (4.30-5.90) m/uL Hgb (13.0-17.5) gm/dL Hct (39.0-53.0) % MCV (80.0-100.0) fL MCH (25.0-35.0) pg MCHC (31.0-37.0) g/dL RDW (11.5-15.5) % Plt Count (150-450) k/uL Neutrophils % % Lymphocytes % % Monocytes % % Eosinophils % % Basophils % % Neutrophils # (1.3-7.7) k/uL Lymphocytes # (1.0-4.8) k/uL Monocytes # (0-1.0) k/uL Eosinophils # (0-0.7) k/uL Basophils # (0-0.2) k/uL Sodium (137-145) mmol/L Potassium (3.5-5.1) mmol/L Chloride (98-107) mmol/L Carbon Dioxide (22-30) mmol/L Anion Gap mmol/L BUN (9-20) mg/dL Creatinine (0.66-1.25) mg/dL Est GFR (CKD-EPI)AfAm (>60 ml/min/1.73 sqM) Est GFR (CKD-EPI)NonAf (>60 ml/min/1.73 sqM) Glucose (74-99) mg/dL Plasma Lactic Acid Filipe (0.7-2.0) mmol/L Calcium (8.4-10.2) mg/dL Total Bilirubin (0.2-1.3) mg/dL AST (17-59) U/L ALT (4-49) U/L Alkaline Phosphatase (38-126) U/L Total Protein (6.3-8.2) g/dL Albumin (3.5-5.0) g/dL Amylase (30-110) U/L Lipase (23-300) U/L Urine Color Yellow Urine Appearance Clear (Clear) Urine pH 6.0 (5.0-8.0) Ur Specific [place] 1.033 (1.001-1.035) Urine Protein 1+ H (Negative) Urine Glucose (UA) Negative (Negative) Urine Ketones 3+ H (Negative) Urine Blood Negative (Negative) Urine Nitrite Negative (Negative) Urine Bilirubin Negative (Negative) Urine Urobilinogen 2.0 (<2.0) mg/dL Ur Leukocyte Esterase Negative (Negative) Urine RBC 1 (0-5) /hpf Urine WBC 1 (0-5) /hpf Ur Squamous Epith Cells <1 (0-4) /hpf Urine Mucus Many H (None) /hpf Disposition Clinical Impression: Appendicitis Disposition: ADMITTED IP TO THIS [facility] Condition: Serious Is patient prescribed a controlled substance at d/c from ED?: No Referrals: Raymundo Veloz MD [Primary Care Provider] - 1-2 days
[2019-11-21] MEDS: HYDROmorphone 1 MG/ML 1 ML SYRINGE IVP STA (22:40)
[2019-11-21] MEDS: SODIUM CHLORIDE 0.9% 1,000 ML IV SCH (23:32)
[2019-11-22] MEDS: MORPHINE SULFATE 4 MG/ML SYRINGE IV PRN ×2 (01:17→09:13)
--- NOTE | 2019-11-22 09:18 | P.GSHP ---
History of Present Illness H&P Date: 11/22/19 CHIEF COMPLAINT: Abdominal pain HISTORY OF PRESENT ILLNESS: 24-year-old male who presents to emergency room chief complaint of abdominal pain. Patient reports his pain is localized to the right lower quadrant. His pain started on Friday and continued to worsen in severity throughout the weekend. Patient reports nausea and vomiting at home. Denies diarrhea or constipation. Denies fever or chills. PAST MEDICAL HISTORY: See list. PAST SURGICAL HISTORY: See list. SOCIAL HISTORY: No illicit drug use. REVIEW OF SYSTEMS: CONSTITUTIONAL: Denies fever or chills. HEENT: Denies blurred vision, vision changes, or eye pain. Denies hemoptysis CARDIOVASCULAR: Denies chest pain or pressure. RESPIRATORY: No shortness of breath. GASTROINTESTINAL: Refer to [facility] for pertinent findings HEMATOLOGIC: Denies bleeding disorders. GENITOURINARY: Denies any blood in urine. SKIN: Denies pruitis. Denies rash. PHYSICAL EXAM: VITAL SIGNS: Reviewed. GENERAL: Well-developed in no acute distress. HEENT: No sclera icterus. Extraocular movements grossly intact. Moist buccal mucosa. Head is atraumatic, normocephalic. ABDOMEN: Soft. Nondistended. Tenderness on palpation of right lower quadrant NEUROLOGIC: Alert and oriented. Cranial nerves II through XII grossly intact. LABORATORY DATA: WBC 20.6. Hemoglobin 16.3. Platelet count 272. Lactic acid 1.1 IMAGING: CT abdomen and pelvis: Prominence of the appendix that measures up to 9 mm. Minimal surrounding fat stranding. ASSESSMENT: 1. Abdominal pain 2. Acute appendicitis PLAN: NPO. Continue IV fluids Continue IV antibiotics. Monitor WBC Patient to undergo laparoscopic appendectomy today with Dr. Patterson Nurse practitioner note has been reviewed by physician. Signing provider agrees with the documented findings, assessment, and plan of care. Past Medical History Past Medical History: Asthma, GERD/Reflux History of Any Multi-Drug Resistant Organisms: None Reported Past Surgical History: Adenoidectomy, Ear Surgery, Tonsillectomy Additional Past Surgical History / Comment(s): broken nose with repair Past Psychological History: Anxiety Smoking Status: Current every day smoker Past Alcohol Use History: Occasional Past Drug Use History: None Reported Medications and Allergies Home Medications Medication Instructions Recorded Confirmed Type Betamethasone Dipropionate 1 applic TOPICAL BID PRN 11/22/19 11/22/19 History [Diprolene AF 0.05% Cream] Escitalopram [Lexapro] 10 mg PO DAILY 11/22/19 11/22/19 History Omeprazole [PriLOSEC] 40 mg PO DAILY 11/22/19 11/22/19 History Allergies Allergy/AdvReac Type Severity Reaction Status Date / Time No Known Allergies Allergy Verified 11/22/19 08:40 Surgical - Exam Vital Signs Temp Pulse Resp BP Pulse Ox 97.5 F L 58 L 20 117/71 100 11/21/19 20:05 11/21/19 20:05 11/21/19 20:05 11/21/19 20:05 11/21/19 20:05 Results - Labs 11/21/19 20:52 11/21/19 20:52 Abnormal Lab Results - Last 24 Hours (Table) 11/21/19 11/21/19 11/21/19 Range/Units 20:52 20:52 20:52 WBC 20.6 H (3.8-10.6) k/uL Neutrophils # 17.8 H (1.3-7.7) k/uL Lipase 18 L (23-300) U/L Urine Protein 1+ H (Negative) Urine Ketones 3+ H (Negative) Urine Mucus Many H (None) /hpf Diabetes panel 11/21/19 Range/Units 20:52 Sodium 138 (137-145) mmol/L Potassium 4.3 (3.5-5.1) mmol/L Chloride 102 (98-107) mmol/L Carbon Dioxide 27 (22-30) mmol/L BUN 11 (9-20) mg/dL Creatinine 0.76 (0.66-1.25) mg/dL Glucose 89 (74-99) mg/dL Calcium 9.6 (8.4-10.2) mg/dL AST 27 (17-59) U/L ALT 22 (4-49) U/L Alkaline Phosphatase 72 (38-126) U/L Total Protein 7.7 (6.3-8.2) g/dL Albumin 4.8 (3.5-5.0) g/dL Calcium panel 11/21/19 Range/Units 20:52 Calcium 9.6 (8.4-10.2) mg/dL Albumin 4.8 (3.5-5.0) g/dL Pituitary panel 11/21/19 Range/Units 20:52 Sodium 138 (137-145) mmol/L Potassium 4.3 (3.5-5.1) mmol/L Chloride 102 (98-107) mmol/L Carbon Dioxide 27 (22-30) mmol/L BUN 11 (9-20) mg/dL Creatinine 0.76 (0.66-1.25) mg/dL Glucose 89 (74-99) mg/dL Calcium 9.6 (8.4-10.2) mg/dL Adrenal panel 11/21/19 Range/Units 20:52 Sodium 138 (137-145) mmol/L Potassium 4.3 (3.5-5.1) mmol/L Chloride 102 (98-107) mmol/L Carbon Dioxide 27 (22-30) mmol/L BUN 11 (9-20) mg/dL Creatinine 0.76 (0.66-1.25) mg/dL Glucose 89 (74-99) mg/dL Calcium 9.6 (8.4-10.2) mg/dL Total Bilirubin 0.7 (0.2-1.3) mg/dL AST 27 (17-59) U/L ALT 22 (4-49) U/L Alkaline Phosphatase 72 (38-126) U/L Total Protein 7.7 (6.3-8.2) g/dL Albumin 4.8 (3.5-5.0) g/dL
[2019-11-22] MEDS ORDERED: ONDANSETRON 4 MG/2 ML VIAL IVP PRN (09:20)
[2019-11-22] MEDS ORDERED: ACETAMINOPHEN TAB 325 MG TAB PO PRN (09:20)
[2019-11-22] MEDS: PIPERACILLIN-TAZOBACTAM 3.375 GM in SODIUM CHLORIDE 0.9% 100 ML IVPB SCH ×3 (09:44→23:10)
[2019-11-22] MEDS: SODIUM CHLORIDE 0.9% 1,000 ML IV SCH ×2 (09:50→20:00)
[2019-11-22] MEDS ORDERED: IV FLUID CONTINUATION 1,000 ML IV ONE (11:59)
[2019-11-22] MEDS ORDERED: ONDANSETRON 4 MG/2 ML VIAL IVP ONE (12:23)
[2019-11-22] MEDS: HEPARIN SODIUM,PORCINE 5,000 UNIT/ML 1 ML VIAL SQ SCH (12:25)
[2019-11-22] MEDS ORDERED: MIDAZOLAM 2 MG/2 ML VIAL ONE (14:20)
[2019-11-22] MEDS ORDERED: GLYCOPYRROLATE 0.2 MG/ML 2 ML VIAL ONE (14:20)
[2019-11-22] MEDS ORDERED: ROCURONIUM BROMIDE 10 MG/ML 5 ML VIAL IV ONE (14:20)
[2019-11-22] MEDS ORDERED: fentaNYL (PF) 50 MCG/ML 2 ML AMP ONE (14:20)
[2019-11-22] MEDS ORDERED: NEOSTIGMINE 1 MG/ML 10 ML VIAL ONE (14:20)
[2019-11-22] MEDS ORDERED: SUCCINYLCHOLINE CHLORIDE 100 MG/5 ML SYR IV ONE (14:20)
[2019-11-22] MEDS ORDERED: PROPOFOL 10 MG/ML 20 ML VIAL IV ONE (14:20)
[2019-11-22] MEDS ORDERED: LIDOCAINE 1% INJ 10MG/ML (20 ML MDV) ONE (14:20)
[2019-11-22] MEDS ORDERED: BUPIVACAINE (PF) 0.25% 30 ML VIAL SQ ONE ×2 (14:40→14:47)
[2019-11-22] MEDS ORDERED: LACTATED RINGERS 1,000 ML IV ONE (14:59)
[2019-11-22] MEDS ORDERED: HYDROmorphone 1 MG/ML 1 ML SYRINGE IVP ONE (15:20)
[2019-11-22] MEDS: HYDROmorphone 1 MG/ML 1 ML SYRINGE IVP STA (15:30)
--- NOTE | 2019-11-22 15:56 | P.OP ---
Date of Procedure: 11/22/19 Preoperative Diagnosis: Appendicitis Postoperative Diagnosis: Appendicitis Procedure(s) Performed: Laparoscopic appendectomy Anesthesia: YVETTE Surgeon: Elvin Patterson Estimated Blood Loss (ml): 5 Pathology: other (Appendix) Condition: stable Disposition: PACU Description of Procedure: The patient's placed on the operating table in the supine position. The patient received general anesthesia. The abdomen was prepped and draped in the usual sterile fashion. The skin was anesthetized 1% local Xylocaine at the trocar sites. Using an 11 blade the skin was incised at the umbilicus. The umbilicus was grasped with a Myriam clamp and then a Veress needle was placed into the peritoneal cavity. Position of the Veress needle was confirmed with positive drop test. After adequate insufflation a 5 mm trocar was placed into the peritoneal cavity. The abdomen was further insufflated. And then the laparoscope was placed in the peritoneal cavity. Next a 5 mm trocar was placed in the midline suprapubic position. And then a 10 mm trocar was placed in the midline epigastric position. The patient was rotated with the right side up and in Trendelenburg. The appendix was visualized. The appendix appeared to be inflamed. The appendix was grasped and then using the Harmonic scissors the mesoappendix was divided. A PDS Endoloop was then placed around the base of the appendix. And then the appendix was divided using Harmonic scissors. The appendix was placed into an Endo Catch and brought out through the 10 mm trocar site. The abdomen was irrigated. There is no bleeding seen. The trochars withdrawn. The skin was closed interrupted 3-0 Monocryl suture. Dermabond dressing was applied. Patient was sent to recovery room in stable condition.
[2019-11-22] MEDS: HYDROcodone/APAP 5-325MG 1 EACH TAB PO PRN (17:37)
[2019-11-22] MEDS: HYDROmorphone 1 MG/ML 1 ML SYRINGE IVP PRN ×2 (18:49→23:11)
[2019-11-22] MEDS ORDERED: BENZOCAINE/MENTHOL LOZENG 1 EACH LOZENGE MUCOUS MEM PRN (22:40)
[2019-11-22 23:09] VITALS: RESP 18
--- NOTE | 2019-11-22 23:27 | P.CONS ---
History of Present Illness - Reason for Consult Consult date: 11/22/19 Medical management Requesting physician: Elvin Patterson - Chief Complaint Abdominal pain - History of Present Illness Consultation: This is a pleasant 24-year-old patient of Dr. Veloz. Chronic stable medical conditions include asthma, GERD, nicotine dependence. Patient finally started of with upper abdominal pain. After a few drinks with his friend started throwing up. Subsequently the next day the pain became O Central and then went on to the right lower quadrant. Based arriving on nausea, and some vomiting. There is no obvious fever and chills. Computed tomography scan was suggestive of appendicitis. Patient then went under laparoscopic appendectomy. Po stprocedure laying in bed. Some abdominal discomfort. No family the bedside. Review of systems: GEN.: Tired EYES: None HEENT: None NECK: None RESPIRATORY: Occasional wheezing CARDIOVASCULAR: None GASTROINTESTINAL: As above GENITOURINARY: None MUSCULOSKELETAL: None LYMPHATICS: None HEMATOLOGICAL: None PSYCHIATRY: None NEUROLOGICAL: None Past medical history to include: Asthma, GERD, Social history: Smokes cigarettes works at [employer], alcohol occasionally Family history: Reviewed, noncontributory to presentation Physical examination: VITAL SIGNS: 98.4, 89, 18, 1 one 83, 100% on room air GENERAL: BMI 39.8, laying in bed propped up awake. EYES: Pupils equal. Conjunctiva normal. HEENT: External appearance of nose and ears normal, oral cavity grossly normal. NECK: JVD not raised; masses not palpable. HEART: First and second heart sounds are normal; no edema. LUNGS: Respiratory rate normal; mild wheezing. ABDOMEN: Soft, mildly tender, no guarding or rigidity, liver spleen not palpable, no masses palpable. PSYCH: Alert and oriented x3; mood and affect normal. NEUROLOGICAL: Cranial nerves grossly intact; no facial asymmetry, power and sensation grossly intact. LYMPHATICS: No lymph nodes palpable in the axilla and neck INVESTIGATIONS, reviewed in the clinical context: White count 20.6 hemoglobin 16.3 potassium 4.3 Computed tomography scan of the abdomen-suggestive of appendicitis Assessment: -Acute appendicitis followed by laparoscopic appendectomy -Obesity BMI 39.8 -Nicotine dependence patient cigarette smoker -Intermittent asthma, with mild exacerbation -GERD -Anxiety not otherwise specified Plan: Care was discussed with the patient. Home medications resumed. Lovenox for DVT prophylaxis. Patient has mild wheezing will add bronchodilators. Care was discussed with the patient. Thank you Dr. Patterson Smoke cessation counseling: This was done with the patient. Nicotine patch is being given. More than 3 minutes was spent for this Past Medical History Past Medical History: Asthma, GERD/Reflux History of Any Multi-Drug Resistant Organisms: None Reported Past Surgical History: Adenoidectomy, Ear Surgery, Tonsillectomy Additional Past Surgical History / Comment(s): broken nose with repair Past Psychological History: Anxiety Smoking Status: Current every day smoker Past Alcohol Use History: Occasional Past Drug Use History: None Reported Medications and Allergies Home Medications Medication Instructions Recorded Confirmed Type Betamethasone Dipropionate 1 applic TOPICAL BID PRN 11/22/19 11/22/19 History [Diprolene AF 0.05% Cream] Escitalopram [Lexapro] 10 mg PO DAILY 11/22/19 11/22/19 History Hydrocodone/Acetaminophen [[place] 1 tab PO Q6HR PRN #10 tab 11/22/19 Rx 5-325] Omeprazole [PriLOSEC] 40 mg PO DAILY 11/22/19 11/22/19 History Allergies Allergy/AdvReac Type Severity Reaction Status Date / Time No Known Allergies Allergy Verified 11/22/19 12:01 Physical Exam Vitals: Vital Signs Temp Pulse Pulse Resp BP BP Pulse Ox 11/22/19 08:00 74 18 11/22/19 07:30 98.5 F 74 18 98/60 98 11/21/19 23:36 98.4 F 89 18 118/83 100 11/21/19 22:41 62 18 120/74 100 11/21/19 20:05 97.5 F L 58 L 20 117/71 100 Intake and Output 11/21/19 11/22/19 11/22/19 22:59 06:59 14:59 Intake Total 200 Balance 200 Intake: Intake, IV Titration 200 Amount Piperacillin-Tazobactam 3 100 .375 gm In Sodium Chloride 0.9% 100 ml @ 200 mls/hr IVPB ONCE ONE Rx#:[id number] Sodium Chloride 0.9% 1, 100 000 ml @ 100 mls/hr IV . Q10H MISTI Rx#:[id number] Other: Voiding Method Toilet Weight 99.79 kg 98.7 kg Results CBC & Chem 7: 11/21/19 20:52 11/21/19 20:52 Labs: Abnormal Lab Results - Last 24 Hours (Table) 11/21/19 11/21/19 11/21/19 Range/Units 20:52 20:52 20:52 WBC 20.6 H (3.8-10.6) k/uL Neutrophils # 17.8 H (1.3-7.7) k/uL Lipase 18 L (23-300) U/L Urine Protein 1+ H (Negative) Urine Ketones 3+ H (Negative) Urine Mucus Many H (None) /hpf
[2019-11-23] MEDS: NICOTINE 14MG/24HR PATCH TRANSDERM SCH ×2 (04:34→08:25)
[2019-11-23] MEDS: SODIUM CHLORIDE 0.9% 1,000 ML IV SCH (04:35)
[2019-11-23] MEDS: HYDROmorphone 1 MG/ML 1 ML SYRINGE IVP PRN ×2 (04:55→08:30)
[2019-11-23 07:18] LABS: Basophils % (A) 1 %; Eosinophils # (A) 0.2 k/uL (0-0.7); Eosinophils % (A) 2 %; HCT 39.6 % (39.0-53.0); Lymphocytes # (A) 1.7 k/uL (1.0-4.8); Lymphocytes % (A) 20 %; MCH 29.5 pg (25.0-35.0); MCHC 33.6 g/dL (31.0-37.0); Mean Platelet Volume 7.7; Monocytes # (A) 0.6 k/uL (0-1.0); Monocytes % (A) 7 %; Neutrophils # (A) 5.6 k/uL (1.3-7.7); Neutrophils % (A) 68 %; Platelet Count 199 k/uL (150-450); RDW 12.2 % (11.5-15.5); WBC 8.3 k/uL (3.8-10.6)
[2019-11-23 07:24] LABS: HGB 13.3 gm/dL (13.0-17.5)
[2019-11-23 07:29] LABS: African American GFR (CKD) >90 (>60 ml/min/1.73 sqM); Anion Gap 7 mmol/L; Blood Urea Nitrogen 7 mg/dL (9-20); Calcium 8.6 mg/dL (8.4-10.2); Carbon Dioxide 26 mmol/L (22-30); Chloride 102 mmol/L (98-107); Glucose 80 mg/dL (74-99); Non-African American GFR(CKD) >90 (>60 ml/min/1.73 sqM); Sodium 135 mmol/L (137-145)
[2019-11-23 07:33] VITALS: BP 111/73; TEMP 98.2
[2019-11-23] MEDS: IPRATROPIUM-ALBUTEROL 3 ML NEB INHALATION SCH ×3 (07:53→14:21)
[2019-11-23 07:57] VITALS: PULSE 76
[2019-11-23] MEDS: HEPARIN SODIUM,PORCINE 5,000 UNIT/ML 1 ML VIAL SQ SCH (08:25)
[2019-11-23] MEDS: PIPERACILLIN-TAZOBACTAM 3.375 GM in SODIUM CHLORIDE 0.9% 100 ML IVPB SCH (08:25)
[2019-11-23] MEDS ORDERED: NON FORMULARY DRUG (Omeprazole 40 MG) PO SCH (09:00)
[2019-11-23] MEDS ORDERED: ESCITALOPRAM 10 MG TAB PO SCH (09:00)
[2019-11-23] MEDS ORDERED: PANTOPRAZOLE 40 MG/10 ML VIAL IVP SCH (09:00)
--- NOTE | 2019-11-23 10:43 | P.PN ---
Subjective Progress Note Date: 11/23/19 CHIEF COMPLAINT: Abdominal pain HISTORY OF PRESENT ILLNESS: Patient examined this morning at the bedside. He is status post laparoscopic appendectomy with Dr. Patterson. Postop day #1. Patient reports his pain is 7 out of 10 this morning. He reports ambulating a short distance in the hallway. He is tolerating liquid diet. Denies nausea or vomiting. Passing flatus. WBC 8.3. Vital signs stable. He is afebrile. PHYSICAL EXAM: VITAL SIGNS: Reviewed. GENERAL: Well-developed in no acute distress. HEENT: No sclera icterus. Extraocular movements grossly intact. Moist buccal mucosa. Head is atraumatic, normocephalic. ABDOMEN: Soft. Nondistended. Appropriate surgical tenderness. Laparoscopic surgical sites clean and intact without drainage or erythema. NEUROLOGIC: Alert and oriented. Cranial nerves II through XII grossly intact. ASSESSMENT: 1. Abdominal pain 2. Acute appendicitis PLAN: Advance diet to full liquids for lunch. If patient tolerates, may advance to regular diet for dinner Pain control. Limit use of IV Dilaudid. Continue [place] every 4 hours. Add Toradol every 6 hours Incentive spirometer 10 times an hour Increase activity as tolerated Discharge home once pain is better controlled Nurse practitioner note has been reviewed by physician. Signing provider agrees with the documented findings, assessment, and plan of care. Objective - Vital Signs Vital signs: Vital Signs Temp 98.2 F 11/23/19 07:10 Pulse 76 11/23/19 08:04 Resp 18 11/23/19 07:10 BP 111/73 11/23/19 07:10 Pulse Ox 96 11/23/19 07:10 Intake & Output 11/22/19 11/23/19 11/23/19 18:59 06:59 18:59 Intake Total 1150 1100 Output Total 5 Balance 1145 1100 Intake: IV 1150 Intake, IV Titration 500 Amount Sodium Chloride 0.9% 1, 500 000 ml @ 100 mls/hr IV . Q10H MISTI Rx#:[id number] Oral 600 Output: Estimated Blood Loss 5 Other: Voiding Method Toilet Toilet Toilet # Voids 4 1 - Labs CBC & Chem 7: 11/23/19 06:53 11/23/19 06:53 Labs: Abnormal Lab Results - Last 24 Hours (Table) 11/23/19 Range/Units 06:53 Sodium 135 L (137-145) mmol/L BUN 7 L (9-20) mg/dL Microbiology - Last 24 Hours (Table) 11/21/19 22:30 Blood Culture - Preliminary Blood No Growth after 24 hours
[2019-11-23] MEDS: HYDROcodone/APAP 5-325MG 1 EACH TAB PO PRN (11:04)
[2019-11-23] MEDS ORDERED: KETOROLAC 30 MG/ML 1 ML VIAL IVP SCH (12:00)
--- NOTE | 2019-11-23 12:45 | P.DS ---
Providers Date of admission: 11/21/19 22:02 Expected date of discharge: 11/23/19 Attending physician: Elvin Patterson Consults: 11/22/19 07:57 Consult Physician Routine Consulting Provider: Kerwin Huggins Consult Reason/Comments: Medical management Do you want consulting provider notified?: Yes Primary care physician: Raymundo Veloz Hospital Course: 24-year-old male who presented to the emergency room chief complaint abdominal pain. Patient was found to have acute appendicitis. He underwent laparoscopic appendectomy with Dr. Patterson. Patient is doing well postoperatively without any immediate complications. He is stable for discharge home today. Please see EMR for further hospital course details. DC Diagnosis: 1. Abdominal pain 2. Acute appendicitis Nurse practitioner note has been reviewed by physician. Signing provider agrees with the documented findings, assessment, and plan of care. Patient Condition at Discharge: Stable Plan - Discharge Summary New Discharge Prescriptions: New Hydrocodone/Acetaminophen [[place] 5-325] 1 tab PO Q6HR PRN #10 tab PRN Reason: Pain No Action Omeprazole [PriLOSEC] 40 mg PO DAILY Escitalopram [Lexapro] 10 mg PO DAILY Betamethasone Dipropionate [Diprolene AF 0.05% Cream] 1 applic TOPICAL BID PRN PRN Reason: arms/hands Discharge Medication List Betamethasone Dipropionate [Diprolene AF 0.05% Cream] 1 applic TOPICAL BID PRN 11/22/19 [History] Escitalopram [Lexapro] 10 mg PO DAILY 11/22/19 [History] Hydrocodone/Acetaminophen [[place] 5-325] 1 tab PO Q6HR PRN #10 tab 11/22/19 [Rx] Omeprazole [PriLOSEC] 40 mg PO DAILY 11/22/19 [History] Follow up Appointment(s)/Referral(s): Raymundo Veloz MD [Primary Care Provider] - 1-2 days Elvin Patterson MD [STAFF PHYSICIAN] - 1 Week Activity/Diet/Wound Care/Special Instructions: No driving while taking [place] No lifting over 10 pounds You may shower. No soaking or tub baths Very light activity until you are reevaluated at your follow up appointment with your surgeon
--- NOTE | 2019-11-23 22:27 | P.PN ---
Progress Note - Text Progress Note Date: 11/23/19 - Chief Complaint Abdominal pain Consultation: This is a pleasant 24-year-old patient of Dr. Veloz. Chronic stable medical conditions include asthma, GERD, nicotine dependence. Patient finally started of with upper abdominal pain. After a few drinks with his friend started throwing up. Subsequently the next day the pain became O Central and then went on to the right lower quadrant. Based arriving on nausea, and some vomiting. There is no obvious fever and chills. Computed tomography scan was suggestive of appendicitis. Patient then went under laparoscopic appendectomy. Postprocedure laying in bed. Some abdominal discomfort. No family the bedside. Today-feeling better. Tolerating diet. Breathing is better. Has been up in the hallway. Review of systems: Was done for constitutional, cardiovascular, GI, pulmonary. relevant finding as above Current medications reviewed on today's electronic records Physical examination: VITAL SIGNS: 98.2-92-18-111 073-96% room air GENERAL: Propped up in bed, more comfortable. EYES: Pupils equal. Conjunctiva normal. HEENT: External appearance of nose and ears normal, oral cavity grossly normal. NECK: JVD not raised; masses not palpable. HEART: First and second heart sounds are normal; no edema. LUNGS: Respiratory rate normal; improved air entry. ABDOMEN: Soft, mildly tender, no guarding or rigidity, liver spleen not palpable, no masses palpable. PSYCH: Alert and oriented x3; mood and affect normal. INVESTIGATIONS, reviewed in the clinical context: White count 8.3 hemoglobin 13.3 potassium 4 Previous testing White count 20.6 hemoglobin 16.3 potassium 4.3 Computed tomography scan of the abdomen-suggestive of appendicitis Assessment: -Acute appendicitis followed by laparoscopic appendectomy -Obesity BMI 39.8 -Nicotine dependence patient cigarette smoker -Intermittent asthma, with mild exacerbation, improving -GERD -Anxiety not otherwise specified Plan: Patient a better. Advised again distended from smoking. Prescribed inhalers. Follow with PCP within the week. Thank you Dr. Patterson
== END 2019-11-23 14:35 | disposition home or self-care (01) ==
LOC: EC 20:00 → 1SOBS 22:02
PROVIDERS: ADMIT Surgery; ATTEND Surgery
DX: K35.80 Unspecified acute appendicitis (principal); J45.21 Mild intermittent asthma with (acute) exacerbation; F17.210 Nicotine dependence, cigarettes, uncomplicated; F41.9 Anxiety disorder, unspecified; K21.9 Gastro-esophageal reflux disease without esophagitis; Z68.39 Body mass index [BMI] 39.0-39.9, adult; E66.9 Obesity, unspecified; Z79.51 Long term (current) use of inhaled steroids; Z79.899 Other long term (current) drug therapy
CPT/HCPCS: 44970; 96376; 96361; 96374; 96375; 99285; 36415; 94640; 88304; 80053; 80048; 82150; 83605; 83690; 85025 ×2; 81001; 87040; 74177; G0378 ×3; S4990; J2543 ×3; J2250; J2270 ×2; J1644 ×2; J2710; J2405 ×2; J2001; J3010; J1885; J1170 ×3; J0330; J2704; C9113; Q9967

== ENCOUNTER → 2020-12-29 | Outpatient (CLI) | payer OTHER ==
--- NOTE | 2020-12-29 16:46 | CT ---
EXAMINATION TYPE: CT brain w con DATE OF EXAM: 12/29/2020 COMPARISON: 07/23/2010 HISTORY: Headache, vision loss RT eye. CT DLP: 1284 mGycm Automated exposure control for dose reduction was used. CONTRAST: Performed with IV Contrast, patient injected with 100 mL of Isovue 300. Ventricles have normal size. There is no mass effect nor midline shift. There is no sign of intracran ial hemorrhage. There is no pathologic enhancement. There is no evidence of orbital mass. The calvari um is intact. There is no evidence of cerebral edema. There is small mucus retention cysts in the lef t maxillary sinus. IMPRESSION: Negative enhanced head CT scan. No adverse change.
== END ==
LOC: RADCTMAIN 15:39
PROVIDERS: ATTEND Physician Assistant
DX: R51.9 Headache, unspecified (principal)
CPT/HCPCS: 70460; Q9967

== ENCOUNTER → 2022-01-31 | Outpatient (CLI) | payer BC, OTHER ==
--- NOTE | 2022-01-31 11:16 | US ---
EXAMINATION TYPE: US abdomen complete DATE OF EXAM: 01/31/2022 COMPARISON: CT 2019 CLINICAL HISTORY: R10.9 abdominal pain. Intermittent abdomen pain x couple months, nausea EXAM MEASUREMENTS: Liver Length: 15.7 cm Gallbladder Wall: 0.3 cm CBD: 0.3 cm Spleen: 12.4 cm Right Kidney: 9.8 x 5.0 x 5.0 cm Left Kidney: 10.2 x 5.0 x 5.1 cm Difficult and limited study due to patient body habitus Pancreas: mostly obscured by overlying midline bowel gas Liver: mildly heterogeneous Gallbladder: appears contracted, 1.0cm echogenic focus seen Evidence for sonographic Arteaga's sign: yes CBD: visualized portions wnl, limited by overlying bowel gas Spleen: wnl Right Kidney: wnl Left Kidney: wnl Upper IVC: wnl Abd Aorta: visualized portions appear wnl The liver shows no mass. The intrahepatic portion of the IVC and proximal abdominal aorta are within normal limits. Common bile duct is unremarkable. The visualized portions of the pancreas are homoge nous. The spleen is unremarkable. Kidneys are symmetric and free of hydronephrosis. No renal lesio ns are seen. IMPRESSION: Exam somewhat limited. There may be underlying hepatocellular disease, hepatic steatosis. Contracted gallbladder, difficult to exclude cholelithiasis
== END | disposition home or self-care (01) ==
LOC: RADUSWWP 08:50
PROVIDERS: ATTEND Family Medicine
DX: K82.8 Other specified diseases of gallbladder (principal)
CPT/HCPCS: 76700

== ENCOUNTER → 2022-03-04 | Outpatient (CLI) | payer BC, OTHER ==
--- NOTE | 2022-03-04 10:38 | CA ---
Exercise Stress Test Report Name: Farhad Farias Exam Date: 03/04/2022 09:06 Exam Location: [place] Stress Ht (in): 63 Wt (lb): 235 BSA: 2.07 Ordering Phys: Collette Lyon MD Referring Phys: Joel Antony Technologist: HIREN,, Age: 26 Gender: M : 1995 Procedure CPT: Indications: z82.49 ICD-10 Codes: Patient History: FAMILY HISTORY OF HEART DISEASE Medications: PROPANOLOL,,,,,, VITAMIN E,,,,,, ANTI- ANXIETY MED,,,,, Meds past 24 hrs: Pretest Chest Pain: STRESS TEST Mark Protocol Exercise Duration (min:sec): 06:[address] Depressions (mm): Angina Score: Godoy Score: Resting HR (bpm): 98 Peak HR (bpm): 173 Resting BP (mmHg): 117 / 77 Peak BP (mmHg): 206 / 49 MPHR: 193 Target HR: 164 % MPHR: 90 METS: 8.3 Total Dose: Peak Dose: Atropine: Double Product: 56392 BP Response: Stress Termination: Dyspnea Maximum heart rate obtained Stress Symptoms: CHEST PAIN,DIZZINESS Stress Summary: ECG ANALYSIS Resting ECG: Stress ECG: CONCLUSIONS Baseline heart rate 84 beats a minute, Baseline blood pressure 117/77 mmHg Normal baseline 12-lead EKG Patient exercised on a Mark protocol for 6 minutes 40 seconds T blood pressure 206/49 mmHg Peak heart rate 173 beats a minute Patient complained of chest pain dizziness and lightheadedness No ECG evidence for ischemia No arrhythmias Impression Low workload achieved during this stress test Hypertensive response to exercise No ECG evidence for ischemia or arrhythmia Dr. Saroj Lawrence MD (Electronically Signed) Final Date: 04 Mar 2022 10:37
== END | disposition home or self-care (01) ==
LOC: RADNMMAIN 08:41
PROVIDERS: ATTEND Family Medicine
DX: I10 Essential (primary) hypertension (principal); Z82.49 Family history of ischemic heart disease and other diseases of the circulatory system
CPT/HCPCS: 93017

== ENCOUNTER 2022-08-22 15:17 | Emergency (ER) | payer OTHER ==
[2022-08-22] MEDS ORDERED: methylPREDNISolone SOD SUCCI 125 MG/2 ML VIAL IM ONE (17:37)
[2022-08-22] MEDS ORDERED: IPRATROPIUM-ALBUTEROL 3 ML NEB INHALATION STA (17:37)
--- NOTE | 2022-08-22 18:54 | XR ---
EXAMINATION: XR chest 2V: 08/22/2022 5:48 PM CLINICAL INDICATION: cough TECHNIQUE: Departmental protocol COMPARISON: 07/18/2018 FINDINGS: The overlying soft tissues are prominent. Notwithstanding, the lungs appear to be well expanded and c lear bilaterally. The pleural spaces are negative. The cardiac silhouette is not enlarged. The remainder of the mediastinal silhouette is unremarkable. The skeletal structures and soft tissues are negative for acute findings. IMPRESSION: No acute process.
[2022-08-22 19:17] VITALS: RESP 18
--- NOTE | 2022-08-22 19:41 | ED ---
URI HPI - General Chief Complaint: Upper Respiratory Infection Stated Complaint: R ear pain,sore throat Time Seen by Provider: 08/22/22 16:09 Source: patient Mode of arrival: ambulatory Limitations: no limitations - History of Present Illness Initial Comments: Patient is a 27-year-old male presenting with chief complaint of cough. For the last 2 days patient has had a dry cough, sore throat, and right-sided ear pain. He admits to some shortness of breath with coughing fits, otherwise no difficulty breathing. No chest pain. No fever or chills. No nausea, vomiting, abdominal pain. No neck pain or stiffness. - Related Data Home Medications Medication Instructions Recorded Confirmed Betamethasone Dipropionate 1 applic TOPICAL BID PRN 11/22/19 11/22/19 [Diprolene AF 0.05% Cream] Escitalopram [Lexapro] 10 mg PO DAILY 11/22/19 11/22/19 Omeprazole [PriLOSEC] 40 mg PO DAILY 11/22/19 11/22/19 Previous Rx's Medication Instructions Recorded Hydrocodone/Acetaminophen [[place] 1 tab PO Q6HR PRN #10 tab 11/22/19 5-325] Albuterol Sulfate [Albuterol 2 puff PO Q6H #8.5 gm 08/22/22 Sulfate Hfa] Allergies Allergy/AdvReac Type Severity Reaction Status Date / Time No Known Allergies Allergy Verified 08/22/22 16:06 Review of Systems ROS Statement: Those systems with pertinent positive or pertinent negative responses have been documented in the HPI. ROS Other: All systems not noted in ROS Statement are negative. Past Medical History Past Medical History: Asthma, GERD/Reflux History of Any Multi-Drug Resistant Organisms: None Reported Past Surgical History: Adenoidectomy, Ear Surgery, Tonsillectomy Additional Past Surgical History / Comment(s): broken nose with repair Past Psychological History: Anxiety Smoking Status: Vaper Past Alcohol Use History: Occasional Past Drug Use History: None Reported General Exam Limitations: no limitations General appearance: alert, in no apparent distress Head exam: Present: atraumatic, normocephalic, normal inspection Eye exam: Present: normal appearance, PERRL, EOMI. Absent: scleral icterus, conjunctival injection, periorbital swelling ENT exam: Present: normal exam, normal oropharynx, mucous membranes moist, TM's normal bilaterally Neck exam: Present: normal inspection, full ROM. Absent: tenderness Respiratory exam: Present: normal lung sounds bilaterally. Absent: respiratory distress, wheezes, rales, rhonchi, stridor Cardiovascular Exam: Present: regular rate, normal rhythm, normal heart sounds. Absent: systolic murmur, diastolic murmur, rubs, gallop, clicks Neurological exam: Present: alert, oriented X3, CN II-XII intact Psychiatric exam: Present: normal affect, normal mood Skin exam: Present: warm, dry, intact, normal color. Absent: rash Course Vital Signs 08/22/22 08/22/22 08/22/22 16:04 18:15 18:21 Temperature 98.9 F Pulse Rate 99 72 Respiratory 20 18 Rate Blood Pressure 107/68 O2 Sat by Pulse 96 Oximetry 08/22/22 08/22/22 18:31 19:56 Temperature 98.8 F Pulse Rate 77 85 Respiratory 18 Rate Blood Pressure 107/73 O2 Sat by Pulse 96 Oximetry Medical Decision Making - Medical Decision Making Patient is a 19-year-old male presenting with chief complaint of cough, sore throat, right ear pain. Physical examination is unremarkable, normal tympanic membranes bilaterally, heart and lungs are clear to auscultation, normal posterior pharynx. Patient is negative for coronavirus and chest x-ray shows no acute process. Patient is given breathing treatment and Solu-Medrol. He reports some improvement. He will be discharged home with a prescription for albuterol inhaler. Follow-up with PCP. Report back to ER with any new or worsening symptoms. Discussed return parameters and answered all questions. Patient conveyed verbal understanding and agreed to the plan. I discussed this case in detail with my attending Dr. Gonzales - Lab Data Lab Results 08/22/22 Range/Units 16:05 Coronavirus (PCR) Not Detected (Not Detectd) Disposition Clinical Impression: Upper respiratory tract infection Disposition: HOME SELF-CARE Condition: Good Instructions (If sedation given, give patient instructions): Upper Respiratory Infection (ED) Additional Instructions: Follow-up with PCP. Report back to ER with any new or worsening symptoms. Take medication as prescribed. Take Motrin and Tylenol as needed for any pain or fever control. Take an [id number] antihistamine as needed for congestion and ear pressure. Prescriptions: Albuterol Sulfate [Albuterol Sulfate Hfa] 2 puff PO Q6H #8.5 gm Is patient prescribed a controlled substance at d/c from ED?: No Referrals: Raymundo Veloz MD [Primary Care Provider] - 1-2 days Time of Disposition: 19:41
[2022-08-22 19:58] VITALS: BP 107/73; PULSE 85; TEMP 98.8
== END 2022-08-22 19:57 | disposition home or self-care (01) ==
LOC: EC 15:17
DX: J06.9 Acute upper respiratory infection, unspecified (principal); J45.909 Unspecified asthma, uncomplicated; K21.9 Gastro-esophageal reflux disease without esophagitis; F41.9 Anxiety disorder, unspecified; F17.290 Nicotine dependence, other tobacco product, uncomplicated; Z79.83 Long term (current) use of bisphosphonates; Z79.51 Long term (current) use of inhaled steroids; Z79.899 Other long term (current) drug therapy; Z20.822 Contact with and (suspected) exposure to COVID-19
CPT/HCPCS: 94640; 87635; 71046; 99283; 96372; J2930

== ENCOUNTER 2023-06-26 12:03 | Emergency (ER) | payer OTHER ==
--- NOTE | 2023-06-26 12:12 | ED ---
General Adult HPI - General Stated complaint: Covid Symptoms Time Seen by Provider: 06/26/23 12:11 Source: patient, RN notes reviewed Mode of arrival: ambulatory Limitations: no limitations - History of Present Illness Initial comments: 28-year-old male presents emergency from for cough and cold evaluation. Patient states started recently son is sick with similar symptoms. Patient's is concerned about coronavirus - Related Data Home Medications Medication Instructions Recorded Confirmed Betamethasone Dipropionate 1 applic TOPICAL BID PRN 11/22/19 11/22/19 [Diprolene AF 0.05% Cream] Escitalopram [Lexapro] 10 mg PO DAILY 11/22/19 11/22/19 Omeprazole [PriLOSEC] 40 mg PO DAILY 11/22/19 11/22/19 Previous Rx's Medication Instructions Recorded Hydrocodone/Acetaminophen [[place] 1 tab PO Q6HR PRN #10 tab 11/22/19 5-325] Albuterol Sulfate [Albuterol 2 puff PO Q6H #8.5 gm 08/22/22 Sulfate Hfa] Allergies Allergy/AdvReac Type Severity Reaction Status Date / Time No Known Allergies Allergy Verified 06/26/23 13:21 Review of Systems ROS Statement: Those systems with pertinent positive or pertinent negative responses have been documented in the HPI. ROS Other: All systems not noted in ROS Statement are negative. Past Medical History Past Medical History: Asthma, GERD/Reflux History of Any Multi-Drug Resistant Organisms: None Reported Past Surgical History: Adenoidectomy, Ear Surgery, Tonsillectomy Additional Past Surgical History / Comment(s): broken nose with repair Past Psychological History: Anxiety Smoking Status: Vaper Past Alcohol Use History: Occasional Past Drug Use History: None Reported General Exam - General Exam Comments Initial Comments: Visual Physical Exam Vital signs reviewed General: Well-appearing, nontoxic, no acute distress. Head: Normocephalic, atraumatic Eyes: PERRLA, EOMI ENT: Airway patent Chest: Nonlabored breathing Skin: No visual rash, normal skin tone Neuro: Alert and oriented 3 Musculoskeletal: No gross abnormalities Limitations: no limitations General appearance: alert, in no apparent distress Head exam: Present: atraumatic, normocephalic, normal inspection Eye exam: Present: normal appearance, PERRL, EOMI. Absent: scleral icterus, conjunctival injection, periorbital swelling ENT exam: Present: normal exam, mucous membranes moist Neck exam: Present: normal inspection. Absent: tenderness, meningismus, lymphadenopathy Respiratory exam: Present: normal lung sounds bilaterally. Absent: respiratory distress, wheezes, rales, rhonchi, stridor Cardiovascular Exam: Present: regular rate, normal rhythm, normal heart sounds. Absent: systolic murmur, diastolic murmur, rubs, gallop, clicks Course Vital Signs 06/26/23 13:17 Temperature 98.4 F Pulse Rate 89 Respiratory 18 Rate Blood Pressure 126/78 O2 Sat by Pulse 97 Oximetry Medical Decision Making - Medical Decision Making I performed a quick note portion of this chart signed Earl Petty PA-C Was pt. sent in by a medical professional or institution (LEONID Tay, [facility], urgent care, hospital, or [facility]...) When possible be specific @ -No Did you speak to anyone other than the patient for history (EMS, parent, family, police, friend...)? What history was obtained from this source @ -No Did you review nursing and triage notes (agree or disagree)? Why? @ -I reviewed and agree with nursing and triage notes Were old charts reviewed (outside hosp., previous admission, EMS record, old EKG, old radiological studies, urgent care reports/EKG's, [facility] records)? Report findings @ -No old charts were reviewed Differential Diagnosis (chest pain, altered mental status, abdominal pain women, abdominal pain men, vaginal bleeding, weakness, fever, dyspnea, syncope, headache, dizziness, GI bleed, back pain, seizure, CVA, palpatations, mental health, musculoskeletal)? @ -URI RSV influenza: 19 EKG interpreted by me (3pts min.). @ -None X-rays interpreted by me (1pt min.). @ -None done CT interpreted by me (1pt min.). @ -None done U/S interpreted by me (1pt. min.). @ -None done What testing was considered but not performed or refused? (CT, X-rays, U/S, labs)? Why? @ -None What meds were considered but not given or refused? Why? @ -None Did you discuss the management of the patient with other professionals (professionals i.e. LEONID Tay, C[facility] GRINDER, lab, RT, psych nurse, social worker masters, woodworking machine feeder, teacher, district fire management officer, case resource manager)? Give summary @ -No Was smoking cessation discussed for >3mins.? @ -No Was critical care preformed (if so, how long)? @ -No Were there social determinants of health that impacted care today? How? (Homelessness, low income, unemployed, alcoholism, drug addiction, solitario sportation, low edu. Level, literacy, decrease access to med. care, intermediate, rehab)? @ -No Was there de-escalation of care discussed even if they declined (Discuss DNR or withdrawal of care, Hospice)? DNR status @ -No What co-morbidities impacted this encounter? (DM, HTN, Smoking, COPD, CAD, Cancer, CVA, ARF, Chemo, Hep., AIDS, mental health diagnosis, sleep apnea, morbid obesity)? @ -None Was patient admitted / discharged? Hospital course, mention meds given and route, prescriptions, significant lab abnormalities, going to OR and other pertinent info. @ -Discharge patient has a viral URI. Undiagnosed new problem with uncertain prognosis? @ -No Drug Therapy requiring intensive monitoring for toxicity (Heparin, Nitro, Insulin, Cardizem)? @ -No Were any procedures done? @ -No Diagnosis/symptom? @ -URI Acute, or Chronic, or Acute on Chronic? @ -Acute Uncomplicated (without systemic symptoms) or Complicated (systemic symptoms)? @ -Uncomplicated Side effects of treatment? @ -No Exacerbation, Progression, or Severe Exacerbation? @ -No Poses a threat to life or bodily function? How? (Chest pain, [place], [place], pneumonia, PE, COPD, DKA, ARF, appy, cholecystitis, CVA, Diverticulitis, Homicidal, Suicidal, threat to staff... and all critical care pts) @ -No - Lab Data Lab Results 06/26/23 Range/Units 13:13 Influenza Type A (PCR) Not Detected (Not Detectd) Influenza Type B (PCR) Not Detected (Not Detectd) RSV (PCR) Not Detected (Not Detectd) SARS-CoV-2 (PCR) Not Detected (Not Detectd) Disposition Clinical Impression: Acute upper respiratory infection Disposition: HOME SELF-CARE Condition: Stable Instructions (If sedation given, give patient instructions): Upper Respiratory Infection (ED) Additional Instructions: Please return to the Emergency Department if symptoms worsen or any other concerns. Is patient prescribed a controlled substance at d/c from ED?: No Referrals: Raymundo Veloz MD [Primary Care Provider] - 1-2 days Time of Disposition: 15:19
[2023-06-26 16:07] VITALS: BP 126/78; PULSE 89; RESP 18; TEMP 98.4
== END 2023-06-26 15:36 | disposition home or self-care (01) ==
LOC: EC 12:03
DX: J06.9 Acute upper respiratory infection, unspecified (principal); J45.909 Unspecified asthma, uncomplicated; K21.9 Gastro-esophageal reflux disease without esophagitis; F41.9 Anxiety disorder, unspecified; F17.290 Nicotine dependence, other tobacco product, uncomplicated; Z79.899 Other long term (current) drug therapy; Z20.822 Contact with and (suspected) exposure to COVID-19
CPT/HCPCS: 87636; 99283

== ENCOUNTER → 2024-04-07 | Outpatient (CLI) | payer OTHER ==
--- NOTE | 2024-04-07 21:23 | MR ---
EXAMINATION TYPE: MR shoulder RT wo con DATE OF EXAM: 04/07/2024 COMPARISON: None HISTORY: Right shoulder pain and limited movement x2-3 years TECHNIQUE: Multiplanar, multisequence imaging of the right shoulder is performed without contrast. FINDINGS: There is no bone contusion or fracture. There are no joint effusions. There is no shoulder impingement. There is a focal intrasubstance tear at the musculotendinous junction of the supraspinatus tendon. Th ere is no retraction of the musculotendinous junction. There is a possible small rim rent tear or ten dinosis in the distal tendon. The subscapularis and infraspinatus tendons are intact. The biceps tendon is normal in signal intensity and position within the bicipital groove the biceps a nchor is intact. The cartilaginous labrum is grossly intact. There is no subacromial or subdeltoid bursitis. IMPRESSION: 1. Tears of the supraspinatus tendon without retraction as described above. 2. No other significant abnormality seen.
== END | disposition home or self-care (01) ==
LOC: RADMRIMAIN 20:45
PROVIDERS: ATTEND Orthopaedic Surgery Sports Medicine
DX: S46.091A Other injury of muscle(s) and tendon(s) of the rotator cuff of right shoulder, initial encounter (principal); S46.911A Strain of unspecified muscle, fascia and tendon at shoulder and upper arm level, right arm, initial encounter

== ENCOUNTER 2024-11-12 16:15 | Emergency (ER) | payer OTHER ==
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
[2024-11-12] MEDS: ACETAMINOPHEN TAB 500 MG TAB PO STA (17:29)
--- NOTE | 2024-11-12 17:29 | XR ---
EXAMINATION TYPE: XR wrist complete LT DATE OF EXAM: 11/12/2024 5:26 PM INDICATION: Patient age:Male; 29 years old; Reason for study: left wrist injury; PHH. pain COMPARISON: None TECHNIQUE: 4 views of the left wrist. Frontal, navicular, lateral, and oblique. FINDINGS: No acute osseous pathology, joint dislocation, or joint effusion. No evidence of any soft tissue swelling is seen. IMPRESSION: No acute osseous pathology. [facility], , 11/12/2024 5:27 PM
[2024-11-12 18:33] VITALS: BP 130/64; PULSE 72; RESP 17; TEMP 98.1
== END 2024-11-12 18:32 | disposition home or self-care (01) ==
LOC: EC 16:15
DX: S63.502A Unspecified sprain of left wrist, initial encounter (principal); F17.290 Nicotine dependence, other tobacco product, uncomplicated; V47.5XXA Car driver injured in collision with fixed or stationary object in traffic accident, initial encounter; Y92.410 Unspecified street and highway as the place of occurrence of the external cause
CPT/HCPCS: 99284

== ENCOUNTER 2025-01-14 18:35 | Emergency (ER) | payer OTHER ==
[2025-01-14 19:11] VITALS: TEMP 98.2
--- NOTE | 2025-01-14 20:05 | ED ---
Abdominal Pain HPI - General Source: patient Mode of arrival: ambulatory <Juan Bonilla - Last Filed: 01/14/25 20:04> - General Source: patient, RN notes reviewed, old records reviewed <Yared Nicole - Last Filed: 01/14/25 23:36> - General Chief Complaint: Abdominal Pain Stated Complaint: abd pain nausea Time Seen by Provider: 01/14/25 20:04 - History of Present Illness Initial Comments: 29-year-old male presenting with chief complaint of abdominal pain. Patient is having sharp epigastric pain that has been ongoing for almost a week now. He admits to nausea and vomiting as well. (Juan Bonilla) Patient is a 29-year-old male originally seen as a quick note. He has been having generalized abdominal cramping with intermittent nausea with nonbloody none bilious emesis as well as some diarrhea over the last 2 to 3 days. Positive sick contacts as the stomach bug has been going around his family. He was concerned due to the continued symptoms as it seems to been running a day longer than other family members. Denies any significant abdominal surgeries other than appendectomy. Denies any chest pain or shortness of breath. Denies any fevers or chills. Presents for further evaluation. Workup started patient was in triage.Patient does have a history of being on weight loss injections. (Yared Nicole) - Related Data Home Medications Medication Instructions Recorded Confirmed Betamethasone Dipropionate 1 applic TOPICAL BID PRN 11/22/19 11/22/19 [Diprolene AF 0.05% Cream] Escitalopram [Lexapro] 10 mg PO DAILY 11/22/19 11/22/19 Omeprazole [PriLOSEC] 40 mg PO DAILY 11/22/19 11/22/19 Previous Rx's Medication Instructions Recorded Hydrocodone/Acetaminophen [[place] 1 tab PO Q6HR PRN #10 tab 11/22/19 5-325] Albuterol Sulfate [Albuterol 2 puff PO Q6H #8.5 gm 08/22/22 Sulfate Hfa] Dicyclomine [Bentyl] 10 mg PO TID PRN 5 Days #15 capsule 01/14/25 Famotidine [Pepcid] 20 mg PO DAILY 14 Days #14 tablet 01/14/25 Allergies Allergy/AdvReac Type Severity Reaction Status Date / Time No Known Allergies Allergy Verified 01/14/25 19:11 Review of Systems ROS Other: All systems not noted in ROS Statement are negative. <Juan Bonilla - Last Filed: 01/14/25 20:04> ROS Other: All systems not noted in ROS Statement are negative. <Yared Nicole - Last Filed: 01/14/25 23:36> ROS Statement: Those systems with pertinent positive or pertinent negative responses have been documented in the HPI. Review of Systems: CONST: Denies fever EYES: Denies blurry vision ENT: Denies nasal congestion C/V: Denies Chest pain RESP: Denies shortness of breath GI: Endorses abdominal pain : Denies dysuria SKIN: Denies rash. MSK: Denies joint pain. 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 History of Any Multi-Drug Resistant Organisms: None Reported Past Surgical History: Adenoidectomy, Ear Surgery, Heart Catheterization, Tonsillectomy Additional Past Surgical History / Comment(s): broken nose with repair Past Psychological History: Anxiety Smoking Status: Never smoker, Vaper Past Alcohol Use History: Occasional Past Drug Use History: None Reported <Juan Bonilla - Last Filed: 01/14/25 20:04> General Exam <Juan Bonilla - Last Filed: 01/14/25 20:04> <Yared Nicole - Last Filed: 01/14/25 23:36> - General Exam Comments Initial Comments: Visual Physical Exam Vital signs reviewed General: Well-appearing, nontoxic, no acute distress. Head: Normocephalic, atraumatic Eyes: PERRLA, EOMI ENT: Airway patent Chest: Nonlabored breathing Skin: No visual rash, normal skin tone Neuro: Alert and oriented 3 Musculoskeletal: No gross abnormalities (Juan Bonilla) General: Appears in no acute distress. HEAD: Normal with no signs of head trauma. EYES: EOMI. ENT: Hearing grossly intact, normal oropharynx. RESPIRATORY: Clear breath sounds bilaterally. No wheezes, rales, or rhonchi. C/V: Regular rate and rhythm. S1 and S2 auscultated, no edema, peripheral pulses 2+ and intact throughout ABD: Abdomen soft, nondistended. Mildly tender to palpation in the epigastric region. No guarding or rebound tenderness. No peritoneal signs. EXT: Normal range of motion, no obvious deformity SKIN: No rashes or lesions observed on exposed skin. NEURO: Alert and oriented x 4. (Yared Nicole) Course Vital Signs 01/14/25 19:08 Temperature 98.2 F Pulse Rate 83 Respiratory 18 Rate Blood Pressure 136/75 O2 Sat by Pulse 98 Oximetry Medical Decision Making <Juan Bonilla - Last Filed: 01/14/25 20:04> - Lab Data Result diagrams: 01/14/25 21:14 01/14/25 21:14 <Yared Nicole - Last Filed: 01/14/25 23:36> - Medical Decision Making I performed the quick note portion of this visit, electronically signed Juan Bonilla PA-C (Juan Bonilla) Was pt. sent in by a medical professional or institution (LEONID Tay, SWEAT BAND SEPARATOR, urgent care, hospital, or senior care...) When possible be specific @ -No Did you speak to anyone other than the patient for history (EMS, parent, family, police, friend...)? What history was obtained from this source @ -No Did you review nursing and triage notes (agree or disagree)? Why? @ -I reviewed and agree with nursing and triage notes Were old charts reviewed (outside hosp., previous admission, EMS record, old EKG, old radiological studies, urgent care reports/EKG's, senior care records)? Report findings @ -No old charts were reviewed Differential Diagnosis (chest pain, altered mental status, abdominal pain women, abdominal pain men, vaginal bleeding, weakness, fever, dyspnea, syncope, headache, dizziness, GI bleed, back pain, seizure, CVA, palpatations, mental health, musculoskeletal)? @ -Differential Abdominal Pain Men: Appendicitis, cholecystitis, diverticulosis, ischemic bowel, pancreatitis, hepatitis, UTI, gastroenteritis, AAA, incarcerated hernia, bowel obstruction, constipation, inflammatory bowel, hepatitis, peptic ulcer disease, splenic infarction, perforated viscus, testicular torsion, this is not meant to be an all-inclusive list EKG interpreted by me (3pts min.). @ -None done X-rays interpreted by me (1pt min.). @ -None done CT interpreted by me (1pt min.). @ -None done U/S interpreted by me (1pt. min.). @ -Abdominal ultrasound shows possible gallbladder but no evidence of cholecystitis or other acute intra-abdominal process. What testing was considered but not performed or refused? (CT, X-rays, U/S, labs)? Why? @ -None What meds were considered but not given or refused? Why? @ -None Did you discuss the management of the patient with other professionals (professionals i.e. , PA, SWEAT BAND SEPARATOR, lab, RT, psych nurse, case management social worker, nursing home physician, teacher, weapons electrical engineering officer, egg caser)? Give summary @ -No Was smoking cessation discussed for >3mins.? @ -No Was critical care preformed (if so, how long)? @ -No Were there social determinants of health that impacted care today? How? (Homelessness, low income, unemployed, alcoholism, drug addiction, transportation, low edu. Level, literacy, decrease access to med. care, care home, rehab)? @ -No Was there de-escalation of care discussed even if they declined (Discuss DNR or withdrawal of care, Hospice)? DNR status @ -No What co-morbidities impacted this encounter? (DM, HTN, Smoking, COPD, CAD, Cancer, CVA, ARF, Chemo, Hep., AIDS, mental health diagnosis, sleep apnea, morbid obesity)? @ -None Was patient admitted / discharged? Hospital course, mention meds given and route, prescriptions, significant lab abnormalities, going to OR and other p ertinent info. @ -Patient presents for abdominal pain with nausea, vomiting, diarrhea. Positive sick contacts at home. Workup started as a quick note. Patient to be symptomatically treat with IV fluids, Zofran, Toradol, Protonix. We obtain abdominal labs, abdominal ultrasound. Patient was in agreement this plan. Vitals are within acceptable limits. Laboratory studies are all within acceptable limits. Viral swabs negative. Ultrasound shows possible gallstone but no evidence of cholecystitis or other acute process. On reevaluation, patient is resting comfortably with no symptoms. I discussed the results with him. He expresses understanding the possibility of biliary colic but this could also be a viral syndrome causing his current symptoms. He will be discharged home with an acids, ODT Zofran, as well as Bentyl. Strict return precautions discussed. Discussed bland diet. He was in agreement this plan. I instructed the patient to follow up with their PCP in the next 1-3 days. I provided contact information for follow up with gastroenterology. I explained that the patient should return to the emergency department if they experience any worsening symptoms. Strict return precautions were discussed with the patient. The patient expressed understanding of these instructions. I answered all questions that the patient had. The patient was discharged home in good condition with their prescriptions and follow up information. Undiagnosed new problem with uncertain prognosis? @ -No Drug Therapy requiring intensive monitoring for toxicity (Heparin, Nitro, Insulin, Cardizem)? @ -No Were any procedures done? @ -No Diagnosis/symptom? @ -Abdominal pain of unknown etiology, possible biliary colic, viral syndrome Acute, or Chronic, or Acute on Chronic? @ -Acute Uncomplicated (without systemic symptoms) or Complicated (systemic symptoms)? @ -Uncomplicated Side effects of treatment? @ -No Exacerbation, Progression, or Severe Exacerbation? @ -No Poses a threat to life or bodily function? How? (Chest pain, [place], NC, pneumonia, PE, COPD, DKA, ARF, appy, cholecystitis, CVA, Diverticulitis, Homicidal, Suicidal, threat to staff... and all critical care pts) @ -Unlikely at this time (Yared Nicole) - Lab Data Lab Results 01/14/25 01/14/25 01/14/25 Range/Units 21:14 21:14 21:14 WBC 8.0 (3.8-10.6) k/uL RBC 5.77 (4.30-5.90) m/uL Hgb 16.5 (13.0-17.5) gm/dL Hct 48.3 (39.0-53.0) % MCV 83.7 (80.0-100.0) fL MCH 28.5 (25.0-35.0) pg MCHC 34.1 (31.0-37.0) g/dL RDW 12.3 (11.5-15.5) % Plt Count 323 (150-450) k/uL MPV 7.3 Neutrophils % 60 % Lymphocytes % 26 % Monocytes % 8 % Eosinophils % 2 % Basophils % 1 % Neutrophils # 4.9 (1.3-7.7) k/uL Lymphocytes # 2.1 (1.0-4.8) k/uL Monocytes # 0.7 (0-1.0) k/uL Eosinophils # 0.2 (0-0.7) k/uL Basophils # 0.1 (0-0.2) k/uL Sodium 138 (137-145) mmol/L Potassium 3.5 (3.5-5.1) mmol/L Chloride 98 (98-107) mmol/L Carbon Dioxide 29 (22-30) mmol/L Anion Gap 11 mmol/L BUN 11 (9-20) mg/dL Creatinine 1.01 (0.66-1.25) mg/dL Est GFR (CKD-EPI)AfAm >90 (>60 ml/min/1.73 sqM) Est GFR (CKD-EPI)NonAf >90 (>60 ml/min/1.73 sqM) Glucose 95 (74-99) mg/dL Plasma Lactic Acid Filipe (0.7-2.0) mmol/L Calcium 9.8 (8.4-10.2) mg/dL Total Bilirubin 1.4 H (0.2-1.3) mg/dL AST 52 (17-59) U/L ALT 84 H (4-49) U/L Alkaline Phosphatase 83 (38-126) U/L Total Protein 7.6 (6.3-8.2) g/dL Albumin 4.9 (3.5-5.0) g/dL Amylase 38 (30-110) U/L Lipase 34 (23-300) U/L Urine Color Yellow Urine Appearance Cloudy (Clear) Urine pH 5.5 (5.0-8.0) Ur Specific [place] 1.034 (1.001-1.035) Urine Protein 1+ H (Negative) Urine Glucose (UA) Negative (Negative) Urine Ketones 2+ H (Negative) Urine Blood Negative (Negative) Urine Nitrite Negative (Negative) Urine Bilirubin 1+ H (Negative) Urine Urobilinogen 3.0 (<2.0) mg/dL Ur Leukocyte Esterase Negative (Negative) Urine RBC 1 (0-5) /hpf Urine WBC 3 (0-5) /hpf Ur Squamous Epith Cells <1 (0-4) /hpf Urine Mucus Many H (None) /hpf Influenza Type A (PCR) (Not Detectd) Influenza Type B (PCR) (Not Detectd) RSV (PCR) (Not Detectd) SARS-CoV-2 (PCR) (Not Detectd) 01/14/25 01/14/25 Range/Units 21:14 22:22 WBC (3.8-10.6) k/uL RBC (4.30-5.90) m/uL Hgb (13.0-17.5) gm/dL Hct (39.0-53.0) % MCV (80.0-100.0) fL MCH (25.0-35.0) pg MCHC (31.0-37.0) g/dL RDW (11.5-15.5) % Plt Count (150-450) k/uL MPV Neutrophils % % Lymphocytes % % Monocytes % % Eosinophils % % Basophils % % Neutrophils # (1.3-7.7) k/uL Lymphocytes # (1.0-4.8) k/uL Monocytes # (0-1.0) k/uL Eosinophils # (0-0.7) k/uL Basophils # (0-0.2) k/uL Sodium (137-145) mmol/L Potassium (3.5-5.1) mmol/L Chloride (98-107) mmol/L Carbon Dioxide (22-30) mmol/L Anion Gap mmol/L BUN (9-20) mg/dL Creatinine (0.66-1.25) mg/dL Est GFR (CKD-EPI)AfAm (>60 ml/min/1.73 sqM) Est GFR (CKD-EPI)NonAf (>60 ml/min/1.73 sqM) Glucose (74-99) mg/dL Plasma Lactic Acid Filipe 1.1 (0.7-2.0) mmol/L Calcium (8.4-10.2) mg/dL Total Bilirubin (0.2-1.3) mg/dL AST (17-59) U/L ALT (4-49) U/L Alkaline Phosphatase (38-126) U/L Total Protein (6.3-8.2) g/dL Albumin (3.5-5.0) g/dL Amylase (30-110) U/L Lipase (23-300) U/L Urine Color Urine Appearance (Clear) Urine pH (5.0-8.0) Ur Specific [place] (1.001-1.035) Urine Protein (Negative) Urine Glucose (UA) (Negative) Urine Ketones (Negative) Urine Blood (Negative) Urine Nitrite (Negative) Urine Bilirubin (Negative) Urine Urobilinogen (<2.0) mg/dL Ur Leukocyte Esterase (Negative) Urine RBC (0-5) /hpf Urine WBC (0-5) /hpf Ur Squamous Epith Cells (0-4) /hpf Urine Mucus (None) /hpf Influenza Type A (PCR) Not Detected (Not Detectd) Influenza Type B (PCR) Not Detected (Not Detectd) RSV (PCR) Not Detected (Not Detectd) SARS-CoV-2 (PCR) Not Detected (Not Detectd) Disposition <Juan Bonilla - Last Filed: 01/14/25 20:04> Is patient prescribed a controlled substance at d/c from ED?: No Time of Disposition: 23:30 <Yared Nicole - Last Filed: 01/14/25 23:36> Clinical Impression: Abdominal pain of unknown etiology, Viral syndrome, Biliary colic Disposition: HOME SELF-CARE Condition: Good Instructions (If sedation given, give patient instructions): Abdominal Pain (ED), Gallstones (ED) Additional Instructions: You likely have a viral syndrome causing your nausea, vomiting, diarrhea. Could be related to the possible gallstone we see on the ultrasound causing biliary colic. Either way, no definitive diagnosis for your abdominal pain today however I believe is safe for you to be discharged home with close follow-up with your PCP. Follow-up with PCP in the next 1 to 3 days and return to the ER for worsening symptoms. Follow-up with gastroenterology if symptoms do not resolve. Return if any worsening symptoms. Please take Pepcid daily for acid relief as well as use ODT Zofran for nausea as needed and Bentyl as needed for pain. Prescriptions: Dicyclomine [Bentyl] 10 mg PO TID PRN 5 Days #15 capsule PRN Reason: Pain Famotidine [Pepcid] 20 mg PO DAILY 14 Days #14 tablet Referrals: Raymundo Veloz MD [Primary Care Provider] - 1-2 days Linda Herrera MD [STAFF PHYSICIAN] - 1-2 days
[2025-01-14 21:23] LABS: Appearance,Urine Cloudy (Clear); Bilirubin,Urine 1+ (Negative); Blood,Urine Negative (Negative); Color,Urine Yellow; Glucose,Urine (UA) Negative (Negative); Ketones,Urine 2+ (Negative); Leukocyte Esterase,Urine Negative (Negative); Mucus,Urine Many /hpf; Nitrite,Urine Negative (Negative); PH, Urine 5.5 (5.0-8.0); Protein,Urine 1+ (Negative); RBC,Urine 1 /hpf (0-5); Specific Gravity,Urine 1.034 (1.001-1.035); Squamous Epithelial Cell,Urine <1 /hpf (0-4); WBC,Urine 3 /hpf (0-5)
[2025-01-14 21:30] LABS: ALT 84 U/L (4-49); AST 52 U/L (17-59); African American GFR (CKD) >90 (>60 ml/min/1.73 sqM); Albumin 4.9 g/dL (3.5-5.0); Alkaline Phosphatase 83 U/L (38-126); Amylase 38 U/L (30-110); Anion Gap 11 mmol/L; Blood Urea Nitrogen 11 mg/dL (9-20); Calcium 9.8 mg/dL (8.4-10.2); Carbon Dioxide 29 mmol/L (22-30); Chloride 98 mmol/L (98-107); Glucose 95 mg/dL (74-99); Lipase 34 U/L (23-300); Non-African American GFR(CKD) >90 (>60 ml/min/1.73 sqM); Potassium 3.5 mmol/L (3.5-5.1); Sodium 138 mmol/L (137-145); Total Bilirubin 1.4 mg/dL (0.2-1.3); Total Protein 7.6 g/dL (6.3-8.2)
[2025-01-14 21:32] LABS: Basophils # (A) 0.1 k/uL (0-0.2); Basophils % (A) 1 %; Eosinophils # (A) 0.2 k/uL (0-0.7); Eosinophils % (A) 2 %; HCT 48.3 % (39.0-53.0); HGB 16.5 gm/dL (13.0-17.5); Lymphocytes # (A) 2.1 k/uL (1.0-4.8); Lymphocytes % (A) 26 %; MCH 28.5 pg (25.0-35.0); MCHC 34.1 g/dL (31.0-37.0); MCV 83.7 fL (80.0-100.0); Mean Platelet Volume 7.3; Monocytes # (A) 0.7 k/uL (0-1.0); Monocytes % (A) 8 %; Neutrophils # (A) 4.9 k/uL (1.3-7.7); Neutrophils % (A) 60 %; Platelet Count 323 k/uL (150-450); RBC 5.77 m/uL (4.30-5.90); RDW 12.3 % (11.5-15.5)
[2025-01-14] MEDS: PANTOPRAZOLE 40 MG/10 ML VIAL IVP STA (22:23)
[2025-01-14] MEDS: SODIUM CHLORIDE 0.9% 1,000 ML IV ONE (22:23)
[2025-01-14] MEDS: KETOROLAC 15 MG/ML 1 ML VIAL IVP STA (22:23)
[2025-01-14] MEDS: ONDANSETRON 4 MG/2 ML VIAL IVP STA (22:24)
[2025-01-14 23:12] LABS: Influenza A Not Detected (Not Detectd); Influenza B Not Detected (Not Detectd); RSV Not Detected (Not Detectd)
--- NOTE | 2025-01-14 23:22 | US ---
EXAM: US Abdomen Limited, Right Upper Quadrant CLINICAL HISTORY: ITS.REASON US Reason: Epigastric pain TECHNIQUE: Real-time ultrasound of the right upper quadrant with image documentation. COMPARISON: No relevant prior studies available. FINDINGS: Liver: Liver measures 15.4 cm. Echogenic parenchyma suggesting steatosis. No intrahepatic bile duct dilation. Gallbladder: Possible gallstone. No gallbladder wall thickening or Arteaga sign to suggest cholecystitis. Common bile duct: Common bile duct measures 4 mm, within normal limits. Pancreas: Pancreas obscured by bowel gas. Right kidney: Unremarkable. Right kidney measures 9.6 cm. No hydronephrosis. IMPRESSION: Possible gallstone. No gallbladder wall thickening or Arteaga sign to suggest cholecystitis. No biliary dilatation.
[2025-01-14] MEDS: ONDANSETRON 4 MG ODT STARTER PACK 2 TAB BTL PO STA (23:47)
[2025-01-14 23:56] VITALS: BP 96/66; PULSE 77; RESP 16
== END 2025-01-14 23:51 | disposition home or self-care (01) ==
LOC: EC 18:35
DX: R10.84 Generalized abdominal pain (principal); B34.9 Viral infection, unspecified; F17.290 Nicotine dependence, other tobacco product, uncomplicated
CPT/HCPCS: 36415; 80053; 82150; 83605; 83690; 85025; 81001; 87636; 76705; 99284; 96374; 96375 ×2; 96361; J2405; J1885; S0119; J2470